=== PATIENT | male | born 1980 | race Caucasian/White ===

== ENCOUNTER 2021-08-15 17:50 | Inpatient (IN) | payer OTHER ==
[2021-08-15] MEDS ORDERED: HYDROmorphone 0.5 MG/0.5 ML SYRINGE IVP STA ×2 (21:01→22:46)
[2021-08-15] MEDS ORDERED: SODIUM CHLORIDE 0.9% 1,000 ML IV STA (21:01)
[2021-08-15] MEDS ORDERED: ONDANSETRON 4 MG/2 ML VIAL IVP STA (21:01)
--- NOTE | 2021-08-15 21:05 | ED ---
Abdominal Pain HPI - General Chief Complaint: Abdominal Pain Stated Complaint: Abd Pain Time Seen by Provider: 08/15/21 20:55 Source: patient, RN notes reviewed, old records reviewed Mode of arrival: ambulatory Limitations: no limitations - History of Present Illness Initial Comments: Well-appearing 41-year-old male presents to the emergency room with epigastric abdominal pain that woke him from sleep at 3 AM. Patient states that he's had constant pain sharp and stabbing that radiates into his back since. He's had 2 episodes of vomiting undigested food. Family member gave him Zofran with some relief this afternoon along with Pepto-Bismol. Denies any fevers, no medical history. Nonsmoker, drinks 2 beers at a time maybe 3 times a week MD Complaint: abdominal pain -: hour(s) (18) Location: diffuse Radiation: L flank, R flank Severity scale (1-10): 10 Quality: stabbing, sharp Consistency: constant Improves With: nothing Worsens With: movement Associated Symptoms: nausea, vomiting Treatments Prior to Arrival: other (zofran) - Related Data Home Medications Medication Instructions Recorded Confirmed No Known Home Medications 08/15/21 08/15/21 Allergies Allergy/AdvReac Type Severity Reaction Status Date / Time No Known Allergies Allergy Verified 08/15/21 22:10 Review of Systems ROS Statement: Those systems with pertinent positive or pertinent negative responses have been documented in the HPI. ROS Other: All systems not noted in ROS Statement are negative. Past Medical History Past Medical History: No Reported History Past Surgical History: No Surgical Hx Reported Smoking Status: Former smoker Past Alcohol Use History: Occasional Past Drug Use History: None Reported General Exam Limitations: no limitations General appearance: alert, in no apparent distress Head exam: Present: atraumatic, normocephalic, normal inspection Eye exam: Present: normal appearance. Absent: scleral icterus, conjunctival injection ENT exam: Present: mucous membranes moist Neck exam: Present: normal inspection, full ROM. Absent: tenderness, meningismus Respiratory exam: Present: normal lung sounds bilaterally. Absent: respiratory distress, accessory muscle use Cardiovascular Exam: Present: regular rate, normal rhythm GI/Abdominal exam: Present: soft, tenderness (Diffuse). Absent: rigid Extremities exam: Present: normal capillary refill. Absent: pedal edema Back exam: Present: normal inspection, full ROM, CVA tenderness (R). Absent: tenderness, rash noted Neurological exam: Present: alert, oriented X3, normal gait Psychiatric exam: Present: normal affect, normal mood Skin exam: Present: warm, dry, intact, normal color. Absent: cyanosis, diaphoretic, petechiae, pallor Course Vital Signs 08/15/21 18:31 Temperature 98.2 F Pulse Rate 80 Respiratory 20 Rate Blood Pressure 135/81 O2 Sat by Pulse 99 Oximetry Medical Decision Making - Medical Decision Making Patient presents with upper abdominal pain radiates into his back since 3:00 this morning. He states that he does not drink daily, no previous history of pancreatitis. No previous surgical or medical history AST 710, ALT 866, alk phos 132, amylase 1003, Lipase 61952 CT shows fluid in the left retroperitoneal anterior pararenal space consistent with pancreatitis. There is cholelithiasis with no dilated ducts. No evidence of diverticulitis. No mesenteric edema, no ascites. Patient was given IV fluids and pain medication. NPO. Results discussed with patient and he will be admitted to the hospital for acute pancreatitis. He is agreeable to this plan of care. Case discussed with Dr. Brock. - Lab Data Result diagrams: 08/15/21 22:00 08/15/21 22:00 Lab Results 08/15/21 08/15/21 08/15/21 Range/Units 21:01 22:00 22:00 WBC 9.1 (3.8-10.6) k/uL RBC 5.26 (4.30-5.90) m/uL Hgb 13.6 (13.0-17.5) gm/dL Hct 41.2 (39.0-53.0) % MCV 78.3 L (80.0-100.0) fL MCH 25.8 (25.0-35.0) pg MCHC 32.9 (31.0-37.0) g/dL RDW 13.6 (11.5-15.5) % Plt Count 169 (150-450) k/uL MPV 8.4 Neutrophils % 92 % Lymphocytes % 3 % Monocytes % 3 % Eosinophils % 1 % Basophils % 0 % Neutrophils # 8.3 H (1.3-7.7) k/uL Lymphocytes # 0.3 L (1.0-4.8) k/uL Monocytes # 0.3 (0-1.0) k/uL Eosinophils # 0.1 (0-0.7) k/uL Basophils # 0.0 (0-0.2) k/uL PT (9.0-12.0) sec INR (<1.2) APTT (22.0-30.0) sec Sodium 138 (137-145) mmol/L Potassium 4.1 (3.5-5.1) mmol/L Chloride 101 (98-107) mmol/L Carbon Dioxide 27 (22-30) mmol/L Anion Gap 10 mmol/L BUN 15 (9-20) mg/dL Creatinine 1.01 (0.66-1.25) mg/dL Est GFR (CKD-EPI)AfAm >90 (>60 ml/min/1.73 sqM) Est GFR (CKD-EPI)NonAf >90 (>60 ml/min/1.73 sqM) Glucose 118 H (74-99) mg/dL Plasma Lactic Acid Darron (0.7-2.0) mmol/L Calcium 9.3 (8.4-10.2) mg/dL Total Bilirubin 3.0 H (0.2-1.3) mg/dL AST 710 H (17-59) U/L ALT 866 H (4-49) U/L Alkaline Phosphatase 132 H (38-126) U/L Total Protein 7.4 (6.3-8.2) g/dL Albumin 4.5 (3.5-5.0) g/dL Amylase 1003 H* (30-110) U/L Lipase 72766 H (23-300) U/L Urine Color Yellow Urine Appearance Clear (Clear) Urine pH 5.5 (5.0-8.0) Ur Specific [place] 1.024 (1.001-1.035) Urine Protein 1+ H (Negative) Urine Glucose (UA) Negative (Negative) Urine Ketones Negative (Negative) Urine Blood Negative (Negative) Urine Nitrite Negative (Negative) Urine Bilirubin 1+ H (Negative) Urine Urobilinogen 2.0 (<2.0) mg/dL Ur Leukocyte Esterase Negative (Negative) Urine RBC <1 (0-5) /hpf Urine WBC 1 (0-5) /hpf Urine Mucus Rare H (None) /hpf 08/15/21 08/15/21 Range/Units 22:00 22:00 WBC (3.8-10.6) k/uL RBC (4.30-5.90) m/uL Hgb (13.0-17.5) gm/dL Hct (39.0-53.0) % MCV (80.0-100.0) fL MCH (25.0-35.0) pg MCHC (31.0-37.0) g/dL RDW (11.5-15.5) % Plt Count (150-450) k/uL MPV Neutrophils % % Lymphocytes % % Monocytes % % Eosinophils % % Basophils % % Neutrophils # (1.3-7.7) k/uL Lymphocytes # (1.0-4.8) k/uL Monocytes # (0-1.0) k/uL Eosinophils # (0-0.7) k/uL Basophils # (0-0.2) k/uL PT 10.1 (9.0-12.0) sec INR 0.9 (<1.2) APTT 21.7 L (22.0-30.0) sec Sodium (137-145) mmol/L Potassium (3.5-5.1) mmol/L Chloride (98-107) mmol/L Carbon Dioxide (22-30) mmol/L Anion Gap mmol/L BUN (9-20) mg/dL Creatinine (0.66-1.25) mg/dL Est GFR (CKD-EPI)AfAm (>60 ml/min/1.73 sqM) Est GFR (CKD-EPI)NonAf (>60 ml/min/1.73 sqM) Glucose (74-99) mg/dL Plasma Lactic Acid [place] 1.7 (0.7-2.0) mmol/L Calcium (8.4-10.2) mg/dL Total Bilirubin (0.2-1.3) mg/dL AST (17-59) U/L ALT (4-49) U/L Alkaline Phosphatase (38-126) U/L Total Protein (6.3-8.2) g/dL Albumin (3.5-5.0) g/dL Amylase (30-110) U/L Lipase (23-300) U/L Urine Color Urine Appearance (Clear) Urine pH (5.0-8.0) Ur Specific [place] (1.001-1.035) Urine Protein (Negative) Urine Glucose (UA) (Negative) Urine Ketones (Negative) Urine Blood (Negative) Urine Nitrite (Negative) Urine Bilirubin (Negative) Urine Urobilinogen (<2.0) mg/dL Ur Leukocyte Esterase (Negative) Urine RBC (0-5) /hpf Urine WBC (0-5) /hpf Urine Mucus (None) /hpf Disposition Clinical Impression: Pancreatitis Disposition: ADMITTED IP TO THIS [facility] Referrals: Nonstaff,Physician [Primary Care Provider] - 1-2 days Decision Date: 08/15/21 Decision Time: 22:56
[2021-08-15 22:11] LABS: Basophils % (A) 0 %; Eosinophils # (A) 0.1 k/uL (0-0.7); Eosinophils % (A) 1 %; HCT 41.2 % (39.0-53.0); HGB 13.6 gm/dL (13.0-17.5); Lymphocytes # (A) 0.3 k/uL (1.0-4.8); Lymphocytes % (A) 3 %; MCH 25.8 pg (25.0-35.0); MCHC 32.9 g/dL (31.0-37.0); MCV 78.3 fL (80.0-100.0); Mean Platelet Volume 8.4; Monocytes # (A) 0.3 k/uL (0-1.0); Monocytes % (A) 3 %; Neutrophils # (A) 8.3 k/uL (1.3-7.7); Neutrophils % (A) 92 %; Platelet Count 169 k/uL (150-450); RBC 5.26 m/uL (4.30-5.90); RDW 13.6 % (11.5-15.5); WBC 9.1 k/uL (3.8-10.6)
[2021-08-15 22:36] LABS: AST 710 U/L (17-59); African American GFR (CKD) >90 (>60 ml/min/1.73 sqM); Albumin 4.5 g/dL (3.5-5.0); Alkaline Phosphatase 132 U/L (38-126); Anion Gap 10 mmol/L; Blood Urea Nitrogen 15 mg/dL (9-20); Calcium 9.3 mg/dL (8.4-10.2); Carbon Dioxide 27 mmol/L (22-30); Chloride 101 mmol/L (98-107); Glucose 118 mg/dL (74-99); Non-African American GFR(CKD) >90 (>60 ml/min/1.73 sqM); Potassium 4.1 mmol/L (3.5-5.1); Sodium 138 mmol/L (137-145); Total Protein 7.4 g/dL (6.3-8.2)
[2021-08-15 22:40] LABS: INR 0.9 (<1.2); Prothrombin Time 10.1 sec (9.0-12.0)
[2021-08-15 22:51] LABS: Amylase 1003 U/L (30-110)
[2021-08-15 22:52] LABS: ALT 866 U/L (4-49)
[2021-08-15 22:54] LABS: Partial Thromboplastin Time 21.7 sec (22.0-30.0)
[2021-08-15 23:25] LABS: Lipase 12637 U/L (23-300)
[2021-08-15 23:50] LABS: Appearance,Urine Clear (Clear); Bilirubin,Urine 1+ (Negative); Blood,Urine Negative (Negative); Color,Urine Yellow; Glucose,Urine (UA) Negative (Negative); Ketones,Urine Negative (Negative); Leukocyte Esterase,Urine Negative (Negative); Mucus,Urine Rare /hpf; Nitrite,Urine Negative (Negative); PH, Urine 5.5 (5.0-8.0); Protein,Urine 1+ (Negative); RBC,Urine <1 /hpf (0-5); Specific Gravity,Urine 1.024 (1.001-1.035); WBC,Urine 1 /hpf (0-5)
--- NOTE | 2021-08-16 00:03 | CT ---
EXAMINATION TYPE: CT abdomen pelvis w con DATE OF EXAM: 08/15/2021 COMPARISON: None HISTORY: abd pain CT DLP: 1126.1 mGycm Automated exposure control for dose reduction was used. CONTRAST: Performed with IV Contrast, patient injected with 100 mL of Isovue 370. Images obtained from the diaphragm to the floor of the pelvis with the IV contrast. Lung bases are clear of infiltrate. No pleural effusion. Heart size is normal. No pericardial effusio n. Liver spleen stomach pancreas appear intact. There are calcified gallstones. The bile ducts are no t dilated. There is some fluid in the left anterior pararenal space. There is no adrenal mass. Kidneys show satisfactory contrast opacification. There is no hydronephrosi s. Delayed images show normal renal excretion. There is no retroperitoneal adenopathy. Bladder disten ds smoothly. No inguinal hernia. No free fluid in the pelvis. There are multiple sigmoid diverticula. No diverticulitis. There is no evidence of thickened appendix. There is no mesenteric edema. No ascites. No evidence of free air. No bowel obstruction. Lumbar spine is intact. No compression fracture. Bony pelvis appears intact. IMPRESSION: There is fluid in the left retroperitoneal anterior pararenal space. No sign of renal obstruction. Th is could relate to acute pancreatitis. No significant pancreatic swelling seen however. Cholelithiasis. No dilated ducts.
[2021-08-16] MEDS ORDERED: NALOXONE 0.4 MG/ML 1 ML VIAL IV PRN (00:13)
[2021-08-16] MEDS ORDERED: ONDANSETRON 4 MG/2 ML VIAL IVP PRN (00:13)
[2021-08-16] MEDS: SODIUM CHLORIDE 0.9% 1,000 ML IV SCH ×4 (01:27→20:29)
[2021-08-16] MEDS: HYDROmorphone 1 MG/ML 1 ML SYRINGE IVP PRN ×6 (01:28→21:37)
[2021-08-16 08:35] LABS: ALT 684 U/L (4-49); AST 411 U/L (17-59); African American GFR (CKD) >90 (>60 ml/min/1.73 sqM); Albumin/Globulin Ratio 1.5; Alkaline Phosphatase 132 U/L (38-126); Anion Gap 10 mmol/L; Blood Urea Nitrogen 13 mg/dL (9-20); Calcium 8.4 mg/dL (8.4-10.2); Carbon Dioxide 24 mmol/L (22-30); Chloride 105 mmol/L (98-107); Globulin 2.7 g/dL; Glucose 121 mg/dL (74-99); Non-African American GFR(CKD) >90 (>60 ml/min/1.73 sqM); Potassium 4.1 mmol/L (3.5-5.1); Sodium 139 mmol/L (137-145); Total Protein 6.7 g/dL (6.3-8.2)
[2021-08-16 08:39] LABS: Basophils % (A) 0 %; Eosinophils # (A) 0.1 k/uL (0-0.7); Eosinophils % (A) 1 %; HGB 13.4 gm/dL (13.0-17.5); Lymphocytes # (A) 0.5 k/uL (1.0-4.8); Lymphocytes % (A) 7 %; MCH 25.9 pg (25.0-35.0); MCHC 32.5 g/dL (31.0-37.0); MCV 79.4 fL (80.0-100.0); Mean Platelet Volume 9.6; Monocytes # (A) 0.3 k/uL (0-1.0); Monocytes % (A) 4 %; Neutrophils # (A) 5.5 k/uL (1.3-7.7); Neutrophils % (A) 86 %; Platelet Count 182 k/uL (150-450); RBC 5.16 m/uL (4.30-5.90); RDW 14.2 % (11.5-15.5); WBC 6.4 k/uL (3.8-10.6)
[2021-08-16 09:00] LABS: Amylase 768 U/L (30-110)
[2021-08-16 09:09] LABS: Lipase 8600 U/L (23-300)
[2021-08-16] MEDS: PANTOPRAZOLE 40 MG/10 ML VIAL IV SCH (09:35)
--- NOTE | 2021-08-16 10:07 | P.GSCN ---
History of Present Illness Consult date: 08/16/21 Reason for Consult: Acute pancreatitis Requesting physician: Yuan Mcgovern History of present illness: Patient is a 41-year-old white male who presented to the emergency department yesterday evening with complaints of abdominal pain with nausea and vomiting that began Sunday night and woke him out of sleep. He states it did get somewhat better but then continued throughout the day and he started vomiting. He states he continues to have abdominal pain it is diffuse, nausea and vomiting has improved. He denies any fevers or chills. He has no significant past medical history. He states that he does drink a few times a week 2-3 beers each time and no previous history of pancreatitis, no history of gallbladder disease. Denies any new medications. Labs were consistent with pancreatitis. WBC 9.1 hemoglobin 13.6 hematocrit 41 platelet count 169,000 INR 0.9 total bilirubin 3.0 AST 710 ALT 866 alkaline phosphatase 132 amylase 1003 lipase 12,[address] of the abdomen and pelvis that showed fluid in the left retroperitoneal anterior pararenal space. No sign of renal obstruction. Could be related to acute pancreatitis. No significant pancreatic swelling seen however. Cholelithiasis with no dilated ducts. Review of Systems REVIEW OF SYSTEMS: CARDIOPULMONARY: No chest pain or shortness of breath. Gastrointestinal: Diffuse abdominal pain. Radiating to his back from a right upper quadrant. Nausea and vomiting. No hematemesis, coffee-ground emesis. No rectal bleeding, or melena. GENITOURINARY: No dysuria or hematuria. MUSCULOSKELETAL: Reports normal range of motion. SKIN: No rashes. No jaundice. ENDOCRINE: No chills, fevers. No excessive weight gain or loss. No polydipsia or polyuria. PSYCHIATRIC: Unremarkable. NEUROLOGY: No change in mental status. Denies dizziness, headache. ENT: Vision unremarkable. CONSTITUTIONAL: No recent weight loss. No fever, chills, night sweats. Past Medical History Past Medical History: No Reported History Past Surgical History: No Surgical Hx Reported Smoking Status: Former smoker Past Alcohol Use History: Occasional Past Drug Use History: None Reported Medications and Allergies Home Medications Medication Instructions Recorded Confirmed Type No Known Home Medications 08/15/21 08/15/21 History Allergies Allergy/AdvReac Type Severity Reaction Status Date / Time No Known Allergies Allergy Verified 08/15/21 22:10 Surgical - Exam Vital Signs Temp Pulse Resp BP Pulse Ox 98.2 F 80 20 135/81 99 08/15/21 18:31 08/15/21 18:31 08/15/21 18:31 08/15/21 18:31 08/15/21 18:31 General appearance: The patient is alert, oriented, appears in no acute distress. HET: Head is normocephalic and atraumatic. Conjunctiva pink. Sclera anicteric. Neck: Supple without lymphadenopathy. Trachea midline. Heart: S1 S2. Regular rate and rhythm. Lungs: Clear to auscultation. Abdomen: Soft, diffuse tenderness, nondistended with bowel sounds. No guarding or rigidity. Skin: No rashes. No jaundice. Extremities: Normal skin color and turgor. No pedal edema. Neurological: No focal deficits. Alert and oriented x3. Results - Labs 08/16/21 07:52 08/16/21 07:52 Abnormal Lab Results - Last 24 Hours (Table) 08/15/21 08/15/21 08/15/21 Range/Units 21:01 22:00 22:00 MCV 78.3 L (80.0-100.0) fL Neutrophils # 8.3 H (1.3-7.7) k/uL Lymphocytes # 0.3 L (1.0-4.8) k/uL APTT (22.0-30.0) sec Glucose 118 H (74-99) mg/dL Total Bilirubin 3.0 H (0.2-1.3) mg/dL AST 710 H (17-59) U/L ALT 866 H (4-49) U/L Alkaline Phosphatase 132 H (38-126) U/L Amylase 1003 H* (30-110) U/L Lipase 36182 H (23-300) U/L Urine Protein 1+ H (Negative) Urine Bilirubin 1+ H (Negative) Urine Mucus Rare H (None) /hpf 08/15/21 Range/Units 22:00 MCV (80.0-100.0) fL Neutrophils # (1.3-7.7) k/uL Lymphocytes # (1.0-4.8) k/uL APTT 21.7 L (22.0-30.0) sec Glucose (74-99) mg/dL Total Bilirubin (0.2-1.3) mg/dL AST (17-59) U/L ALT (4-49) U/L Alkaline Phosphatase (38-126) U/L Amylase (30-110) U/L Lipase (23-300) U/L Urine Protein (Negative) Urine Bilirubin (Negative) Urine Mucus (None) /hpf Diabetes panel 08/15/21 Range/Units 22:00 Sodium 138 (137-145) mmol/L Potassium 4.1 (3.5-5.1) mmol/L Chloride 101 (98-107) mmol/L Carbon Dioxide 27 (22-30) mmol/L BUN 15 (9-20) mg/dL Creatinine 1.01 (0.66-1.25) mg/dL Glucose 118 H (74-99) mg/dL Calcium 9.3 (8.4-10.2) mg/dL AST 710 H (17-59) U/L ALT 866 H (4-49) U/L Alkaline Phosphatase 132 H (38-126) U/L Total Protein 7.4 (6.3-8.2) g/dL Albumin 4.5 (3.5-5.0) g/dL Calcium panel 08/15/21 Range/Units 22:00 Calcium 9.3 (8.4-10.2) mg/dL Albumin 4.5 (3.5-5.0) g/dL Pituitary panel 08/15/21 Range/Units 22:00 Sodium 138 (137-145) mmol/L Potassium 4.1 (3.5-5.1) mmol/L Chloride 101 (98-107) mmol/L Carbon Dioxide 27 (22-30) mmol/L BUN 15 (9-20) mg/dL Creatinine 1.01 (0.66-1.25) mg/dL Glucose 118 H (74-99) mg/dL Calcium 9.3 (8.4-10.2) mg/dL Adrenal panel 08/15/21 Range/Units 22:00 Sodium 138 (137-145) mmol/L Potassium 4.1 (3.5-5.1) mmol/L Chloride 101 (98-107) mmol/L Carbon Dioxide 27 (22-30) mmol/L BUN 15 (9-20) mg/dL Creatinine 1.01 (0.66-1.25) mg/dL Glucose 118 H (74-99) mg/dL Calcium 9.3 (8.4-10.2) mg/dL Total Bilirubin 3.0 H (0.2-1.3) mg/dL AST 710 H (17-59) U/L ALT 866 H (4-49) U/L Alkaline Phosphatase 132 H (38-126) U/L Total Protein 7.4 (6.3-8.2) g/dL Albumin 4.5 (3.5-5.0) g/dL - Imaging Comments: CT of the abdomen and pelvis that showed fluid in the left retroperitoneal anterior pararenal space. No sign of renal obstruction. Could be related to acute pancreatitis. No significant pancreatic swelling seen however. Cholelithiasis with no dilated ducts. CT scan - abdomen: report reviewed Assessment and Plan (1) Pancreatitis Narrative/Plan: 41-year-old male with no significant past medical history presented to the emergency department with the complaints of acute sharp abdominal pain radiating to his back and associated with nausea and vomiting. Labs were consistent with pancreatitis. He had a CT of the abdomen and pelvis that did show cholelithiasis with no dilated ducts. No previous history of pancreatitis, admits to drinking a few times a week 2-3 beers at a time. No past history of alcohol abuse no previous history of pancreatitis and reports no new medications. Likely dealing with a gallstone pancreatitis possible choledocholithiasis although CT is not showing evidence of dilated ducts. MRCP is ordered, continue with symptomatic and supportive care at this time. Likely will plan an ERCP once patient's lab stabilize. Current Visit: Yes Status: Acute Code(s): K85.90 - ACUTE PANCREATITIS WITHOUT NECROSIS OR INFECTION, UNSP SNOMED Code(s): 07462202 Plan: 1. Continue symptomatic and supportive care 2. Antiemetics as needed 3. Protonix 40 mg daily 4. Daily CBC, CMP, lipase 5. MRCP ordered 6. Continue nothing by mouth diet for now 7. Consult to General surgery for cholelithiasis, gallstone pancreatitis 8. Further recommendations to follow based on clinical course Thank you for this consultation, we will continue to follow. Dr. Lydia Diaz I agree with the dictator's note, documented as a scribe by Laura Valente.
[2021-08-16] MEDS ORDERED: SODIUM CHLORIDE 0.9% 1,000 ML IV ONE (12:01)
--- NOTE | 2021-08-16 13:12 | P.GSCN ---
History of Present Illness Consult date: 08/16/21 History of present illness: CHIEF COMPLAINT: Abdominal pain HISTORY OF PRESENT ILLNESS: This is a 41-year-old male who presented to the hospital with complaints of abdominal pain that started yesterday morning around 3 AM. He reports that the pain is in the epigastric and right upper quadrant area and radiates across the abdomen into the back and up into the shoulders. He reports that his pain was rating it 10 out of 10. Pain is currently 7 out of 10. He reports of the pain medication does help. He has been having nausea and vomiting. He reports that he had similar symptoms about 2 months ago after eating spicy foods. Patient does have elevated liver enzymes and elevated lipase. Evidence of cholelithiasis on computed tomography scan. Patient admitted with gallstone pancreatitis. Patient seen by GI service. They're recommending an MRCP. Surgical service consulted for gallstone pancreatitis. Patient denies any fevers chills or sweats. Patient's urine has been dark. Patient denies cardiac history. Denies any prior abdominal surgical history. Patient seen and examined with Dr. catherine PAST MEDICAL HISTORY: none PAST SURGICAL HISTORY: none MEDICATIONS: See list. ALLERGIES: See list. SOCIAL HISTORY: No illicit drug use. Former smoker REVIEW OF SYSTEMS: CONSTITUTIONAL: Denies fever or chills. HEENT: Denies blurred vision, vision changes, or eye pain. Denies hemoptysis CARDIOVASCULAR: Denies chest pain or pressure. RESPIRATORY: No shortness of breath. GASTROINTESTINAL: See HPI for pertinent findings HEMATOLOGIC: Denies bleeding disorders. GENITOURINARY: Denies any blood in urine or increased urinary frequency. SKIN: Denies pruitis. Denies rash. PHYSICAL EXAM: VITAL SIGNS: Reviewed GENERAL: Well-developed in no acute distress. HEENT: No sclera icterus. Extraocular movements grossly intact. Moist buccal mucosa. Head is atraumatic, normocephalic. No nasal drainage. ABDOMEN: Soft. Nondistended. Tenderness to palpation of the epigastric and right upper quadrant area NEUROLOGIC: Alert and oriented. Cranial nerves II through XII grossly intact. LABORATORY DATA: WBC 6.4 Hgb 13.4 platelets 182 Sodium 139 potassium 4.1 creatinine 0.94 Total bilirubin up from 3-4.0 AST 710-411 ALT 866-684 alk phos 132 Amylase 1003 down to 768 Lipase 12,637 down to 8600 IMAGING: Computed tomography scan abdomen and pelvis there is fluid in the left retroperitoneal anterior pararenal space. No sign of renal obstruction. This could relate to acute pancreatitis. No significant pancreatic swelling is seen however. Cholelithiasis. No dilated ducts. ASSESSMENT: 1. Acute gallstone pancreatitis 2. Elevated LFTs and total bilirubin PLAN: -Keep patient nothing by mouth except for ice chips -We'll give 1 L fluid bolus. Patient is complaining of extreme thirst. -Continue pain medication as needed -Continue antiemetics as needed -Awaiting MRCP and further recommendations per GI service -Continue to monitor -Patient will eventually require laparoscopic cholecystectomy Thank you for this consultation Physician Manager Unit note has been reviewed by physician. Signing provider agrees with the documented findings, assessment, and plan of care. Past Medical History Past Medical History: No Reported History History of Any Multi-Drug Resistant Organisms: None Reported Past Surgical History: No Surgical Hx Reported Additional Past Anesthesia/Blood Transfusion Reaction / Comm: Pt has never had surgery Smoking Status: Former smoker Past Alcohol Use History: Occasional Past Drug Use History: None Reported - Past Family History Mother Family Medical History: Cancer Additional Family Medical History / Comment(s): Breast cancer survivor Father Family Medical History: Cancer Additional Family Medical History / Comment(s): Lung cancer. Father is living. Medications and Allergies Home Medications Medication Instructions Recorded Confirmed Type No Known Home Medications 08/15/21 08/15/21 History Allergies Allergy/AdvReac Type Severity Reaction Status Date / Time No Known Allergies Allergy Verified 08/15/21 22:10 Surgical - Exam Vital Signs Temp Pulse Resp BP Pulse Ox 98.2 F 80 20 135/81 99 08/15/21 18:31 08/15/21 18:31 08/15/21 18:31 08/15/21 18:31 08/15/21 18:31 Results - Labs 08/16/21 07:52 08/16/21 07:52 Abnormal Lab Results - Last 24 Hours (Table) 08/15/21 08/15/21 08/15/21 Range/Units 21:01 22:00 22:00 MCV 78.3 L (80.0-100.0) fL Neutrophils # 8.3 H (1.3-7.7) k/uL Lymphocytes # 0.3 L (1.0-4.8) k/uL APTT (22.0-30.0) sec Glucose 118 H (74-99) mg/dL Total Bilirubin 3.0 H (0.2-1.3) mg/dL AST 710 H (17-59) U/L ALT 866 H (4-49) U/L Alkaline Phosphatase 132 H (38-126) U/L Amylase 1003 H* (30-110) U/L Lipase 93720 H (23-300) U/L Urine Protein 1+ H (Negative) Urine Bilirubin 1+ H (Negative) Urine Mucus Rare H (None) /hpf 08/15/21 08/16/21 08/16/21 Range/Units 22:00 07:52 07:52 MCV 79.4 L (80.0-100.0) fL Neutrophils # (1.3-7.7) k/uL Lymphocytes # 0.5 L (1.0-4.8) k/uL APTT 21.7 L (22.0-30.0) sec Glucose 121 H (74-99) mg/dL Total Bilirubin 4.0 H (0.2-1.3) mg/dL AST 411 H (17-59) U/L ALT 684 H (4-49) U/L Alkaline Phosphatase 132 H (38-126) U/L Amylase 768 H* (30-110) U/L Lipase 8600 H (23-300) U/L Urine Protein (Negative) Urine Bilirubin (Negative) Urine Mucus (None) /hpf Diabetes panel 08/15/21 08/16/21 Range/Units 22:00 07:52 Sodium 138 139 (137-145) mmol/L Potassium 4.1 4.1 (3.5-5.1) mmol/L Chloride 101 105 (98-107) mmol/L Carbon Dioxide 27 24 (22-30) mmol/L BUN 15 13 (9-20) mg/dL Creatinine 1.01 0.94 (0.66-1.25) mg/dL Glucose 118 H 121 H (74-99) mg/dL Calcium 9.3 8.4 (8.4-10.2) mg/dL AST 710 H 411 H (17-59) U/L ALT 866 H 684 H (4-49) U/L Alkaline Phosphatase 132 H 132 H (38-126) U/L Total Protein 7.4 6.7 (6.3-8.2) g/dL Albumin 4.5 4.0 (3.5-5.0) g/dL Calcium panel 08/15/21 08/16/21 Range/Units 22:00 07:52 Calcium 9.3 8.4 (8.4-10.2) mg/dL Albumin 4.5 4.0 (3.5-5.0) g/dL Pituitary panel 08/15/21 08/16/21 Range/Units 22:00 07:52 Sodium 138 139 (137-145) mmol/L Potassium 4.1 4.1 (3.5-5.1) mmol/L Chloride 101 105 (98-107) mmol/L Carbon Dioxide 27 24 (22-30) mmol/L BUN 15 13 (9-20) mg/dL Creatinine 1.01 0.94 (0.66-1.25) mg/dL Glucose 118 H 121 H (74-99) mg/dL Calcium 9.3 8.4 (8.4-10.2) mg/dL Adrenal panel 08/15/21 08/16/21 Range/Units 22:00 07:52 Sodium 138 139 (137-145) mmol/L Potassium 4.1 4.1 (3.5-5.1) mmol/L Chloride 101 105 (98-107) mmol/L Carbon Dioxide 27 24 (22-30) mmol/L BUN 15 13 (9-20) mg/dL Creatinine 1.01 0.94 (0.66-1.25) mg/dL Glucose 118 H 121 H (74-99) mg/dL Calcium 9.3 8.4 (8.4-10.2) mg/dL Total Bilirubin 3.0 H 4.0 H (0.2-1.3) mg/dL AST 710 H 411 H (17-59) U/L ALT 866 H 684 H (4-49) U/L Alkaline Phosphatase 132 H 132 H (38-126) U/L Total Protein 7.4 6.7 (6.3-8.2) g/dL Albumin 4.5 4.0 (3.5-5.0) g/dL
--- NOTE | 2021-08-16 13:13 | P.HPIM ---
History of Present Illness H&P Date: 08/16/21 Chief Complaint: Abdominal pain with nausea/vomiting This is a pleasant 41-year-old male with no significant past medical history presents to the with concern for abdominal pain and nausea vomiting. He is a former smoker quit in 2014, reports drinking 2-3 beers a few times per week, not daily. Patient is in the area vacationing with his . Around 4 pm yesterday he began having abdominal pain epigastric rates it as a sharp rating 8 to 9 out of 10. He also has nausea and vomiting that began sunday night. Denies hematemesis. No fever, no chills. No diarrhea, no melena. No recent diet changes, no recent illness. He has no history of pancreas or gallbladder issues. Nausea and vomiting has improved, abdominal pain is diffuse and has improved somewhat with pain medication. Once the medication wears off at around the 2.5 to 3 hour stephane, pain returns at a 9/10. On admission white count was 9.1, glucose final 118. Liver enzymes were found to be elevated total bili 3.0, AST 710, ALT 866, alk phos 132. Amylase is elevated at 1003, lipase elevated at 12,637. Abdominal pelvis CT completed shows some fluid around the pancreas consistent with possible pancreatitis. There is also calcified gallstones. Gallbladder duct does not appear dilated on imaging. Patient is admitted for possible gallstone pancreatitis, he has been nothing by mouth and is receiving fluids with normal saline. Amylase and lipase have improved, liver enzymes have also improved somewhat with hydration. He has been evaluated by surgical services who will plan for MRCP to rule out common bile duct stone. Enzymes will be trended. Pt is afebrile, heart rate 92, blood pressure 142/82, 100% room air. REVIEW OF SYSTEMS: CONSTITUTIONAL: No fever, no malaise, no fatigue. HEENT: No recent visual problems or hearing problems. Denied any sore throat. CARDIOVASCULAR: No chest pain, orthopnea, PND, no palpitations, no syncope. PULMONARY: No shortness of breath, no cough, no hemoptysis. GASTROINTESTINAL: No diarrhea. Reports nausea, vomiting, abdominal pain. NEUROLOGICAL: No headaches, no weakness, no numbness. HEMATOLOGICAL: Denies any bleeding or petechiae. GENITOURINARY: Denies any burning micturition, frequency, or urgency. MUSCULOSKELETAL/RHEUMATOLOGICAL: Denies any joint pain, swelling, or any muscle pain. ENDOCRINE: Denies any polyuria or polydipsia. The rest of the 14-point review of systems is negative. PHYSICAL EXAMINATION: GENERAL: The patient is alert and oriented x3, not in any acute distress. Well developed, well nourished. HEENT: Pupils are round and equally reacting to light. EOMI. No scleral icterus. No conjunctival pallor. Normocephalic, atraumatic. No pharyngeal erythema. No thyromegaly. CARDIOVASCULAR: S1 and S2 present. No murmurs, rubs, or gallops. PULMONARY: Chest is clear to auscultation, no wheezing or crackles. ABDOMEN: Soft, tender, nondistended, normoactive bowel sounds. No palpable organomegaly. MUSCULOSKELETAL: No joint swelling or deformity. EXTREMITIES: No cyanosis, clubbing, or pedal edema. NEUROLOGICAL: Gross neurological examination did not reveal any focal deficits. SKIN: No rashes. Assessment and Plan Assessment Possible acute pancreatitis could be gallstone pancreatitis Elevated LFT's Hypertension possibly from pain Hyperglycemia Former smoker GI Prophylaxis IV protonix Full Code Plan Gastrointestinal, Surgical consultation MRCP has been ordered Patient is NPO Continue with IV fluids with normal saline Repeat CMP, Amylase, lipase Monitor blood pressure Check A1C The impression and plan of care has been dictated by Gema Rice, Nurse Practitioner as directed. Dr. Kwasi MD I have performed a history and physical examination and medical decision making of this patient, discussed the same with the dictator, and agree with the dictators assessment and plan as written, documented as a scribe. Based on total visit time, I have performed more than 50% of this visit. Past Medical History Past Medical History: No Reported History Past Surgical History: No Surgical Hx Reported Smoking Status: Former smoker Past Alcohol Use History: Occasional Past Drug Use History: None Reported - Past Family History Mother Family Medical History: Cancer Additional Family Medical History / Comment(s): Breast cancer survivor Father Family Medical History: Cancer Additional Family Medical History / Comment(s): Lung cancer. Father is living. Medications and Allergies Home Medications Medication Instructions Recorded Confirmed Type No Known Home Medications 08/15/21 08/15/21 History Allergies Allergy/AdvReac Type Severity Reaction Status Date / Time No Known Allergies Allergy Verified 08/15/21 22:10 Physical Exam Vitals: Vital Signs Temp Pulse Resp BP Pulse Ox 08/16/21 05:00 94 16 140/88 100 08/16/21 03:00 85 16 135/80 100 08/15/21 18:31 98.2 F 80 20 135/81 99 Intake and Output 08/15/21 08/16/21 08/16/21 22:59 06:59 14:59 Other: Weight 92.986 kg Results CBC & Chem 7: 08/16/21 07:52 08/16/21 07:52 Labs: Abnormal Lab Results - Last 24 Hours (Table) 08/15/21 08/15/21 08/15/21 Range/Units 21:01 22:00 22:00 MCV 78.3 L (80.0-100.0) fL Neutrophils # 8.3 H (1.3-7.7) k/uL Lymphocytes # 0.3 L (1.0-4.8) k/uL APTT (22.0-30.0) sec Glucose 118 H (74-99) mg/dL Total Bilirubin 3.0 H (0.2-1.3) mg/dL AST 710 H (17-59) U/L ALT 866 H (4-49) U/L Alkaline Phosphatase 132 H (38-126) U/L Amylase 1003 H* (30-110) U/L Lipase 82943 H (23-300) U/L Urine Protein 1+ H (Negative) Urine Bilirubin 1+ H (Negative) Urine Mucus Rare H (None) /hpf 08/15/21 08/16/21 Range/Units 22:00 07:52 MCV 79.4 L (80.0-100.0) fL Neutrophils # (1.3-7.7) k/uL Lymphocytes # 0.5 L (1.0-4.8) k/uL APTT 21.7 L (22.0-30.0) sec Glucose (74-99) mg/dL Total Bilirubin (0.2-1.3) mg/dL AST (17-59) U/L ALT (4-49) U/L Alkaline Phosphatase (38-126) U/L Amylase (30-110) U/L Lipase (23-300) U/L Urine Protein (Negative) Urine Bilirubin (Negative) Urine Mucus (None) /hpf Assessment and Plan Time with Patient: Less than 30
--- NOTE | 2021-08-16 18:28 | MR ---
[facility] HISTORY: Pancreatitis Multiplanar multisequence imaging obtained through the biliary system with three-dimensional reconstr uctions performed and alternate workstation and reviewed Correlation to CT scan 08/15/2021 There are multiple gallstones present within the dependent portion of the gallbladder. Focal low sign al consistent with stone is present within the distal common bile duct, axial image 21 of series 801 and 701, possibly coronal image #18 of series 401. Pericholecystic fluid is present. The liver is enl arged, no dilated biliary ducts are identified. There are portion of duodenum shows an ectatic appear ance, some local inflammatory changes are present. Pancreas shows no dilated duct, there is no evident mass, peripancreatic inflammatory changes, fluid signal noted as on CT along anterior renal extending into the lateral conal fascia on the left. Lung bases show probable atelectatic change. Spleen is enlarged. Adrenal glands are within normal arce its. No evident bowel obstruction. Aorta shows normal caliber. No evident retroperitoneal adenopathy. IMPRESSION: Findings consistent with choledocholithiasis, cholelithiasis, correlate for pancreatitis, cholecystitis. Probable basilar atelectasis. Hepatosplenomegaly.
[2021-08-17] MEDS: HYDROmorphone 1 MG/ML 1 ML SYRINGE IVP PRN ×7 (01:14→22:46)
[2021-08-17] MEDS: SODIUM CHLORIDE 0.9% 1,000 ML IV SCH ×3 (01:15→13:31)
[2021-08-17] MEDS ORDERED: ACETAMINOPHEN TAB 325 MG TAB PO PRN (07:17)
[2021-08-17 08:06] LABS: HCT 38.3 % (39.0-53.0); HGB 12.4 gm/dL (13.0-17.5); Hypochromasia Slight; MCH 26.1 pg (25.0-35.0); MCHC 32.5 g/dL (31.0-37.0); MCV 80.4 fL (80.0-100.0); Mean Platelet Volume 8.6; Platelet Count 169 k/uL (150-450); RBC 4.76 m/uL (4.30-5.90); RDW 14.1 % (11.5-15.5); WBC 7.3 k/uL (3.8-10.6)
[2021-08-17] MEDS: PANTOPRAZOLE 40 MG/10 ML VIAL IV SCH (08:07)
[2021-08-17] MEDS: PIPERACILLIN-TAZOBACTAM 3.375 GM in SODIUM CHLORIDE 0.9% 100 ML IVPB SCH ×2 (08:07→16:26)
[2021-08-17 10:51] LABS: African American GFR (CKD) 122.9 (60.0-200.0); Albumin 3.6 g/dL (3.8-4.9); Albumin/Globulin Ratio 1.73 (1.60-3.17); Anion Gap 11.5 mmol/L (10.00-18.00); BUN/Creat Ratio 14.09 Ratio (12.00-20.00); Blood Urea Nitrogen 12.6 mg/dL (9.0-27.0); Calcium 8.1 mg/dL (8.7-10.3); Carbon Dioxide 22.8 mmol/L (20.0-27.5); Globulin 2.1 g/dL (1.6-3.3); Potassium 4.2 mmol/L (3.5-5.5); Total Bilirubin 1.9 mg/dL (0.30-1.20); Total Protein 5.7 g/dL (6.2-8.2)
--- NOTE | 2021-08-17 12:09 | P.PN ---
Subjective Progress Note Date: 08/17/21 Principal diagnosis: Acute pancreatitis 41-year-old male who presented to the emergency department 2 days ago with complaints of abdominal pain radiating to his back and associated with nausea and vomiting. He was found to have labs consistent with acute pancreatitis. CT of the abdomen and pelvis with her concerning for choline lithiasis possible choledocholithiasis. Patient underwent MRCP yesterday showing choledocholithiasis, cholelithiasis. He also had a spike in his temperature to 100.1 yesterday afternoon and again this morning. He states abdominal pain is slightly improved but not by much. He has no further nausea or vomiting. WBC 7.3 hemoglobin 12.4 hematocrit 38 platelet count 169,000 total bilirubin 1.9 AST 108 ALT 41 alkaline phosphatase 131 amylase 194 lipase 343. Objective - Vital Signs Vital signs: Vital Signs Temp 99.7 F H 08/17/21 11:29 Pulse 91 08/17/21 11:29 Resp 16 08/17/21 11:29 BP 122/80 08/17/21 11:29 Pulse Ox 90 L 08/17/21 11:29 FiO2 Intake & Output 08/16/21 08/17/21 08/17/21 18:59 06:59 18:59 Intake Total 300 1200 Balance 300 1200 Weight 92.986 kg Intake: Intake, IV Titration 300 1200 Amount Sodium Chloride 0.9% 1, 300 1200 000 ml @ 150 mls/hr IV . Q6H40M [facility] Rx#:[id number] Other: Voiding Method Toilet Toilet - Exam General appearance: The patient is alert, oriented, appears in no acute distress. HET: Head is normocephalic and atraumatic. Conjunctiva pink. Sclera anicteric. Neck: Supple without lymphadenopathy. Abdomen: Soft, diffuse tenderness, greatest tenderness to palpation in the epigastric and right upper quadrant. Nondistended with bowel sounds. No guarding or rigidity. Extremities: Normal skin color and turgor. No pedal edema Skin: No rashes, no jaundice Neurological: No focal deficits. Alert and oriented x3. - Labs CBC & Chem 7: 08/17/21 05:27 08/17/21 05:27 Labs: Abnormal Lab Results - Last 24 Hours (Table) 08/17/21 08/17/21 Range/Units 05:27 05:27 Hgb 12.4 L (13.0-17.5) gm/dL Hct 38.3 L (39.0-53.0) % Calcium 8.1 L (8.7-10.3) mg/dL Total Bilirubin 1.90 H (0.30-1.20) mg/dL AST 108 H (14-35) U/L ALT 401 H (10-49) U/L Alkaline Phosphatase 131 H (41-126) U/L Total Protein 5.7 L (6.2-8.2) g/dL Albumin 3.6 L (3.8-4.9) g/dL Amylase 194 H (23-121) U/L Lipase 343 H (14-60) U/L Assessment and Plan (1) Pancreatitis Narrative/Plan: 41-year-old male with no significant past medical history presented to the emergency department with the complaints of acute sharp abdominal pain radiating to his back and associated with nausea and vomiting. Labs were consistent with pancreatitis. He had a CT of the abdomen and pelvis that did show cholelithiasis with no dilated ducts. No previous history of pancreatitis, admits to drinking a few times a week 2-3 beers at a time. No past history of alcohol abuse no previous history of pancreatitis and reports no new medications. Likely dealing with a gallstone pancreatitis possible choledocholithiasis although CT is not showing evidence of dilated ducts. MRCP shows cholelithiasis, choledocholithiasis. Labs continue to improve. Likely plan is to move forward with ERCP in 1-2 days. Current Visit: Yes Status: Acute Code(s): K85.90 - ACUTE PANCREATITIS WITHOUT NECROSIS OR INFECTION, UNSP SNOMED Code(s): 84050186 Plan: 1. Continue symptomatic and supportive care 2. Antiemetics as needed 3. Protonix 40 mg daily 4. Daily CBC, CMP, lipase 5. Clear liquid diet 6. Consult to General surgery for cholelithiasis, gallstone pancreatitis 7. Will reevaluate patient in the morning. Consider possible ERCP within the next 1-2 days Thank you for this consultation, we will continue to follow. Dr. Lydia Diaz I agree with the dictator's note, documented as a scribe by Laura Valente.
--- NOTE | 2021-08-17 13:37 | P.PN ---
Subjective Progress Note Date: 08/17/21 This is a pleasant 41-year-old male with no significant past medical history presents to the with concern for abdominal pain and nausea vomiting. He is a former smoker quit in 2014, reports drinking 2-3 beers a few times per week, not daily. Patient is in the area vacationing with his . Around 4 pm yesterday he began having abdominal pain epigastric rates it as a sharp rating 8 to 9 out of 10. He also has nausea and vomiting that began sunday night. Denies hematemesis. No fever, no chills. No diarrhea, no melena. No recent diet changes, no recent illness. He has no history of pancreas or gallbladder issues. Nausea and vomiting has improved, abdominal pain is diffuse and has improved somewhat with pain medication. Once the medication wears off at around the 2.5 to 3 hour stephane, pain returns at a 9/10. On admission white count was 9.1, glucose final 118. Liver enzymes were found to be elevated total bili 3.0, AST 710, ALT 866, alk phos 132. Amylase is elevated at 1003, lipase elevated at 12,637. Abdominal pelvis CT completed shows some fluid around the pancreas consistent with possible pancreatitis. There is also calcified gallstones. Gallbladder duct does not appear dilated on imaging. Patient is admitted for possible gallstone pancreatitis, he has been nothing by mouth and is receiving fluids with normal saline. Amylase and lipase have improved, liver enzymes have also improved somewhat with hydration. He has been evaluated by surgical services who will plan for MRCP to rule out common bile duct stone. Enzymes will be trended. Pt is afebrile, heart rate 92, blood pressure 142/82, 100% room air. 08/17/2021 Patient evaluated today resting in bed. 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 MRCP shows evidence for choledocholelisthiasis, cholelisthiasis, pancreatitis, cholecystitis. There is also evidence of basilar atelectasis on MRCP. Patient was started on IV zosyn. Pain today has slightly improved, mostly epigastric left upper quadrant pain. There is tenderness to palpation. He denies nausea, no vomiting. Pain is about 7/10 before pain meds. White count continues to be negative at 7.3. Oxygen saturation is 90 to 93% on room air. He does have some faint basilar crackles on exam. Liver enzymes are improving, amylase is now 194, lipase 343. GI services plan for ERCP in 1-2 days. General surgery is on consult and following patient. Review of Systems Constitutional: Denied any fatigue. Reports fever. Cardio vascular: denied any chest pain, palpitations Gastrointestinal: denied any nausea, vomiting, diarrhea. Reports abdominal pain. Pulmonary: Denies shortness of breath, Denies chest pain. Neurologic denied any new focal deficits All inpatient medications were reviewed and appropriate changes in these me dications as dictated in the interval history and assessment and plan. PHYSICAL EXAMINATION: GENERAL: The patient is alert and oriented x3, not in any acute distress. Well developed, well nourished. HEENT: Pupils are round and equally reacting to light. EOMI. No scleral icterus. No conjunctival pallor. Normocephalic, atraumatic. No pharyngeal erythema. No thyromegaly. CARDIOVASCULAR: S1 and S2 present. No murmurs, rubs, or gallops. PULMONARY: Faint basilar crackles. ABDOMEN: Soft, tender, nondistended, normoactive bowel sounds. No palpable organomegaly. MUSCULOSKELETAL: No joint swelling or deformity. EXTREMITIES: No cyanosis, clubbing, or pedal edema. NEUROLOGICAL: Gross neurological examination did not reveal any focal deficits. SKIN: No rashes. Assessment and Plan Assessment Possible acute pancreatitis could be gallstone pancreatitis Acute ascending cholangitis with sepsis with evidence of choledolisthiasis, cholelisthiasis on MRCP Elevated LFT's, improving Hypertension, improved Hyperglycemia, improved A1C 5.7 Former smoker GI Prophylaxis IV protonix Full Code Plan This is a 41 year old male with complaint of epigastric/left upper quadrant pain with associated nausea vomiting. He underwent MRCP and GI services is planning for an ERCP. Patient is now on clear liquid diet and will be NPO after midnight. There is evidence for possible ascending cholangitis and patient is now febrile. Blood cultures will be taken today, and he has been started on IV zosyn empiri nieves. Surgical services is following the patient. There is also evidence for atelectasis on MRCP and oxygen saturation is 90 to 93% on room air, patient does have basilar crackles and is using incentive spirometer at the bedside. Follow up chest xray has been ordered. We will repeat labs in the morning and continue to monitor temperature. He continues on IV fluids with normal saline. Possible infectious disease consultation. The impression and plan of care has been dictated by Gema Rice, Nurse Practitioner as directed. Dr. Kwasi MD I have performed a history and physical examination and medical decision making of this patient, discussed the same with the dictator, and agree with the dictators assessment and plan as written, documented as a scribe. Based on total visit time, I have performed more than 50% of this visit. Objective - Vital Signs Vital signs: Vital Signs Temp 99.7 F H 08/17/21 11:29 Pulse 91 08/17/21 11:29 Resp 16 08/17/21 11:29 BP 122/80 08/17/21 11:29 Pulse Ox 90 L 08/17/21 11:29 FiO2 Intake & Output 08/16/21 08/17/21 08/17/21 18:59 06:59 18:59 Intake Total 300 1200 Balance 300 1200 Weight 92.986 kg Intake: Intake, IV Titration 300 1200 Amount Sodium Chloride 0.9% 1, 300 1200 000 ml @ 150 mls/hr IV . Q6H40M [facility] Rx#:[id number] Other: Voiding Method Toilet Toilet - Labs CBC & Chem 7: 08/17/21 05:27 08/17/21 05:27 Labs: Abnormal Lab Results - Last 24 Hours (Table) 08/17/21 08/17/21 Range/Units 05:27 05:27 Hgb 12.4 L (13.0-17.5) gm/dL Hct 38.3 L (39.0-53.0) % Calcium 8.1 L (8.7-10.3) mg/dL Total Bilirubin 1.90 H (0.30-1.20) mg/dL AST 108 H (14-35) U/L ALT 401 H (10-49) U/L Alkaline Phosphatase 131 H (41-126) U/L Total Protein 5.7 L (6.2-8.2) g/dL Albumin 3.6 L (3.8-4.9) g/dL Amylase 194 H (23-121) U/L Lipase 343 H (14-60) U/L
--- NOTE | 2021-08-17 14:15 | XR ---
EXAMINATION TYPE: XR chest 2V DATE OF EXAM: 08/17/2021 COMPARISON: NONE HISTORY: Dyspnea. TECHNIQUE: Frontal and lateral views of the chest are obtained. FINDINGS: There are bibasilar opacities. The cardiac silhouette size is are upper limits of normal. No pneumothorax seen bilaterally. The osseous structures are intact. IMPRESSION: Small to tiny left pleural effusion and bibasilar acute infiltrates and/or atelectasis. Jason smith study advised.
--- NOTE | 2021-08-17 14:21 | P.PN ---
Subjective Progress Note Date: 08/17/21 CHIEF COMPLAINT: Gallstone pancreatitis HISTORY OF PRESENT ILLNESS: Patient complains of epigastric and right upper quadrant abdominal pain. He is rating his pain 8 out of 10. Reports that his pain is slightly better than yesterday. Denies any nausea or vomiting. He did have a low-grade temp of 100.1. WBC is 7.3 Hgb 12.4 platelets 169 total bilirubin is down from 4-1.9 LFTs trending downwards lipase showing improvement from 8600-343. MRCP findings consistent with choledocholithiasis, cholelithi asis, correlate for pancreatitis, cholecystitis. Probable basilar atelectasis and hepatosplenomegaly. Patient followed by GI service. Patient seen and examined with Dr. catherine PHYSICAL EXAM: VITAL SIGNS: Reviewed. GENERAL: Well-developed in no acute distress. HEENT: No sclera icterus. Extraocular movements grossly intact. Moist buccal mucosa. Head is atraumatic, normocephalic. ABDOMEN: Soft. Nondistended. Epigastric tenderness and right upper quadrant tenderness NEUROLOGIC: Alert and oriented. Cranial nerves II through XII grossly intact. ASSESSMENT: 1. Acute gallstone pancreatitis 2. Choledocholithiasis PLAN: -Awaiting GI plan regarding ERCP -Patient will require laparoscopic cholecystectomy. This can be completed outpatient. -Agree with adding antibiotics -Continue clear liquids -Continue to monitor LFTs -Continue pain medication as needed -Continue IV fluids Physician Outside Dealer Sales Representative note has been reviewed by physician. Signing provider agrees with the documented findings, assessment, and plan of care. Objective - Vital Signs Vital signs: Vital Signs Temp 99.7 F H 08/17/21 11:29 Pulse 91 08/17/21 11:29 Resp 16 08/17/21 11:29 BP 122/80 08/17/21 11:29 Pulse Ox 90 L 08/17/21 11:29 FiO2 Intake & Output 08/16/21 08/17/21 08/17/21 18:59 06:59 18:59 Intake Total 300 1200 Balance 300 1200 Weight 92.986 kg Intake: Intake, IV Titration 300 1200 Amount Sodium Chloride 0.9% 1, 300 1200 000 ml @ 150 mls/hr IV . Q6H40M [facility] Rx#:[id number] Other: Voiding Method Toilet Toilet - Labs CBC & Chem 7: 08/17/21 05:27 07/13/22 05:27 Labs: Abnormal Lab Results - Last 24 Hours (Table) 08/17/21 08/17/21 Range/Units 05:27 05:27 Hgb 12.4 L (13.0-17.5) gm/dL Hct 38.3 L (39.0-53.0) % Calcium 8.1 L (8.7-10.3) mg/dL Total Bilirubin 1.90 H (0.30-1.20) mg/dL AST 108 H (14-35) U/L ALT 401 H (10-49) U/L Alkaline Phosphatase 131 H (41-126) U/L Total Protein 5.7 L (6.2-8.2) g/dL Albumin 3.6 L (3.8-4.9) g/dL Amylase 194 H (23-121) U/L Lipase 343 H (14-60) U/L
--- NOTE | 2021-08-17 16:45 | P.PN ---
Progress Note - Text Progress Note Date: 08/17/21 Attempted to call Enrrique at [phone] to discuss 's status, however there was initially difficulty with the line and after third attempt there was no answer.
[2021-08-18] MEDS: PIPERACILLIN-TAZOBACTAM 3.375 GM in SODIUM CHLORIDE 0.9% 100 ML IVPB SCH ×4 (00:17→23:24)
[2021-08-18] MEDS: SODIUM CHLORIDE 0.9% 1,000 ML IV SCH ×4 (00:18→23:24)
[2021-08-18] MEDS: HYDROmorphone 1 MG/ML 1 ML SYRINGE IVP PRN ×7 (01:29→21:52)
[2021-08-18] MEDS: PANTOPRAZOLE 40 MG/10 ML VIAL IV SCH (07:37)
[2021-08-18 08:53] LABS: HCT 38.1 % (39.6-50.0); HGB 11.9 g/dL (13.0-17.0); MCH 24.3 pg (27.0-32.0); MCHC 31.2 g/dL (32.0-37.0); MCV 77.9 fL (80.0-97.0); Mean Platelet Volume 10.7 fL (9.5-12.2); NRBC Per 100 WBC 0 /100 WBCS (0.0-0.0); Platelet Count 167 X 10*3/uL (140-440); RBC 4.89 X 10*6/uL (4.40-5.60); RDW 14.5 % (11.5-14.5)
[2021-08-18 09:20] LABS: African American GFR (CKD) 122.5 (60.0-200.0); Albumin 3.4 g/dL (3.8-4.9); Albumin/Globulin Ratio 1.55 (1.60-3.17); Anion Gap 11.5 mmol/L (10.00-18.00); BUN/Creat Ratio 15.22 Ratio (12.00-20.00); Blood Urea Nitrogen 13.7 mg/dL (9.0-27.0); Calcium 8.2 mg/dL (8.7-10.3); Carbon Dioxide 24.5 mmol/L (20.0-27.5); Globulin 2.2 g/dL (1.6-3.3); Non-African American GFR(CKD) 105.7 (60.0-200.0); Potassium 3.9 mmol/L (3.5-5.5); Total Bilirubin 1.2 mg/dL (0.30-1.20); Total Protein 5.6 g/dL (6.2-8.2)
--- NOTE | 2021-08-18 10:33 | P.PN ---
Subjective Progress Note Date: 08/18/21 Principal diagnosis: Acute pancreatitis 41-year-old male who presented to the emergency department 2 days ago with complaints of abdominal pain radiating to his back and associated with nausea and vomiting. He was found to have labs consistent with acute pancreatitis. CT of the abdomen and pelvis with her concerning for choline lithiasis possible choledocholithiasis. Patient underwent MRCP showing choledocholithiasis, cholelithiasis. He also had a spike in his temperature to 102.4 yesterday, this morning temperature was 100.0. He states pain is improving but he still having mid epigastric and right upper quadrant pain needing to take pain medication every 3-4 hours. Denies any nausea or vomiting. WBC 9.6 hemoglobin 11.9 platelet count 167,000 total bilirubin 1.2 AST 29 ALT 223 alkaline phosphatase 104 lipase 63 Objective - Vital Signs Vital signs: Vital Signs Temp 100 F H 08/18/21 04:28 Pulse 95 08/18/21 04:28 Resp 16 08/18/21 04:28 BP 130/77 08/18/21 04:28 Pulse Ox 94 L 08/18/21 04:28 FiO2 Intake & Output 08/17/21 08/18/21 08/18/21 18:59 06:59 18:59 Intake Total 1400 Balance 1400 Intake: Intake, IV Titration 1400 Amount Piperacillin-Tazobactam 3 200 .375 gm In Sodium Chloride 0.9% 100 ml @ 25 mls/hr IVPB Q8HR [facility] Rx# :[id number] Sodium Chloride 0.9% 1, 1200 000 ml @ 100 mls/hr IV . Q10H [facility] Rx#:[id number] Other: Voiding Method Toilet Toilet # Voids 3 - Exam General appearance: The patient is alert, oriented, appears in no acute distress. HET: Head is normocephalic and atraumatic. Conjunctiva pink. Sclera anicteric. Neck: Supple without lymphadenopathy. Abdomen: Soft, diffuse tenderness, greatest tenderness to palpation in the epigastric and right upper quadrant. Nondistended with bowel sounds. No guarding or rigidity. Extremities: Normal skin color and turgor. No pedal edema Skin: No rashes, no jaundice Neurological: No focal deficits. Alert and oriented x3. - Labs CBC & Chem 7: 08/18/21 05:21 08/18/21 05:21 Labs: Abnormal Lab Results - Last 24 Hours (Table) 08/17/21 08/18/21 08/18/21 Range/Units 05:27 05:21 05:21 Hgb 11.9 L (13.0-17.0) g/dL Hct 38.1 L (39.6-50.0) % MCV 77.9 L (80.0-97.0) fL MCH 24.3 L (27.0-32.0) pg MCHC 31.2 L (32.0-37.0) g/dL Calcium 8.1 L 8.2 L (8.7-10.3) mg/dL Total Bilirubin 1.90 H (0.30-1.20) mg/dL AST 108 H (14-35) U/L ALT 401 H 223 H (10-49) U/L Alkaline Phosphatase 131 H (41-126) U/L Total Protein 5.7 L 5.6 L (6.2-8.2) g/dL Albumin 3.6 L 3.4 L (3.8-4.9) g/dL Albumin/Globulin Ratio 1.55 L (1.60-3.17) g/dL Amylase 194 H (23-121) U/L Lipase 343 H 63 H (14-60) U/L Assessment and Plan (1) Pancreatitis Narrative/Plan: 41-year-old male with no significant past medical history presented to the emergency department with the complaints of acute sharp abdominal pain radiating to his back and associated with nausea and vomiting. Labs were consistent with pancreatitis. He had a CT of the abdomen and pelvis that did show cholelithiasis with no dilated ducts. No previous history of pancreatitis, admits to drinking a few times a week 2-3 beers at a time. No past history of alcohol abuse no previous history of pancreatitis and reports no new medications. Likely dealing with a gallstone pancreatitis possible choledocholithiasis although CT is not showing evidence of dilated ducts. MRCP shows cholelithiasis, choledocholithiasis. Labs continue to improve. Likely plan is to move forward with ERCP in 1-2 days. Current Visit: Yes Status: Acute Code(s): K85.90 - ACUTE PANCREATITIS WITHOUT NECROSIS OR INFECTION, UNSP SNOMED Code(s): 33129724 (2) Choledocholithiasis Current Visit: Yes Status: Acute Code(s): K80.50 - CALCULUS OF BILE DUCT W/O CHOLANGITIS OR CHOLECYST W/O OBST SNOMED Code(s): 670189004 Plan: 1. Continue symptomatic and supportive care 2. Antiemetics as needed, pain medication as needed 3. Protonix 40 mg daily 4. Daily CBC, CMP, lipase 5. Nothing by mouth 6. Consult to General surgery for cholelithiasis, gallstone pancreatitis 7. Patient is scheduled for ERCP this afternoon Thank you for this consultation, we will continue to follow. Dr. Lydia Diaz I agree with the dictator's note, documented as a scribe by Laura Valente.
--- NOTE | 2021-08-18 11:11 | P.PN ---
Subjective Progress Note Date: 08/18/21 CHIEF COMPLAINT: Gallstone pancreatitis HISTORY OF PRESENT ILLNESS: Patient complains of epigastric and right upper quadrant abdominal pain. He reports his pain the same at 8 out of 10. Denies any nausea or vomiting. He is scheduled for ERCP today. Patient has been having fevers. T-max of 102.4 mild tachycardia heart rate 105. WBC 9.60 Hgb 11.9 total bilirubin normalized at 1.2 AST normal at 29 ALT trending down from 401-223 alk phos 104 lipase improved at 63. PHYSICAL EXAM: VITAL SIGNS: Reviewed. GENERAL: Well-developed in no acute distress. HEENT: No sclera icterus. Extraocular movements grossly intact. Moist buccal mucosa. Head is atraumatic, normocephalic. ABDOMEN: Soft. Nondistended. Epigastric tenderness and right upper quadrant tenderness NEUROLOGIC: Alert and oriented. Cranial nerves II through XII grossly intact. ASSESSMENT: 1. Acute gallstone pancreatitis 2. Choledocholithiasis PLAN: -ERCP with GI service today -Patient will require laparoscopic cholecystectomy. This can be completed outpatient. -Continue antibiotics -Continue to monitor LFTs -Continue pain medication as needed -Continue IV fluids Physician Molding Room Supervisor note has been reviewed by physician. Signing provider agrees with the documented findings, assessment, and plan of care. I have personally seen and examined the patient, reviewed the BUSINESS DEVELOPMENT ASSISTANT /PAs history, exam and MDM and agree with the assessment and plan as written. Based on total visit time, I have performed more than 50% of the visit. As above: Patient says he is still having some pain. He appears comfortable however. He did have fevers over the last 24 hours. Suspect some degree of cholangitis. Await ERCP today. Continue antibiotics. Will follow. Objective - Vital Signs Vital signs: Vital Signs Temp 100 F H 08/18/21 04:28 Pulse 95 08/18/21 04:28 Resp 16 08/18/21 04:28 BP 130/77 08/18/21 04:28 Pulse Ox 94 L 08/18/21 04:28 FiO2 Intake & Output 08/17/21 08/18/21 08/18/21 18:59 06:59 18:59 Intake Total 1400 Balance 1400 Intake: Intake, IV Titration 1400 Amount Piperacillin-Tazobactam 3 200 .375 gm In Sodium Chloride 0.9% 100 ml @ 25 mls/hr IVPB Q8HR [facility] Rx# :[id number] Sodium Chloride 0.9% 1, 1200 000 ml @ 100 mls/hr IV . Q10H [facility] Rx#:[id number] Other: Voiding Method Toilet Toilet # Voids 3 - Labs CBC & Chem 7: 08/18/21 05:21 08/18/21 05:21 Labs: Abnormal Lab Results - Last 24 Hours (Table) 08/18/21 08/18/21 Range/Units 05:21 05:21 Hgb 11.9 L (13.0-17.0) g/dL Hct 38.1 L (39.6-50.0) % MCV 77.9 L (80.0-97.0) fL MCH 24.3 L (27.0-32.0) pg MCHC 31.2 L (32.0-37.0) g/dL Calcium 8.2 L (8.7-10.3) mg/dL ALT 223 H (10-49) U/L Total Protein 5.6 L (6.2-8.2) g/dL Albumin 3.4 L (3.8-4.9) g/dL Albumin/Globulin Ratio 1.55 L (1.60-3.17) g/dL Lipase 63 H (14-60) U/L
[2021-08-18] MEDS: HYDROcodone/APAP 7.5-325MG 1 EACH TAB PO PRN (12:13)
[2021-08-18] MEDS ORDERED: DOCUSATE 100 MG CAP PO PRN (13:22)
[2021-08-18 13:44] LABS: Appearance,Urine Clear (Clear); Bilirubin,Urine Negative (Negative); Blood,Urine Small (Negative); Color,Urine Yellow; Glucose,Urine (UA) 1+ (Negative); Ketones,Urine 1+ (Negative); Leukocyte Esterase,Urine Negative (Negative); Mucus,Urine Rare /hpf; Nitrite,Urine Negative (Negative); Protein,Urine 2+ (Negative); RBC,Urine 1 /hpf (0-5); Specific Gravity,Urine 1.037 (1.001-1.035); Urobilinogen,Urine <2.0 mg/dL (<2.0); WBC,Urine 2 /hpf (0-5)
--- NOTE | 2021-08-18 14:16 | P.PN ---
Subjective Progress Note Date: 08/18/21 This is a pleasant 41-year-old male with no significant past medical history presents to the with concern for abdominal pain and nausea vomiting. He is a former smoker quit in 2014, reports drinking 2-3 beers a few times per week, not daily. Patient is in the area vacationing with his . Around 4 pm yesterday he began having abdominal pain epigastric rates it as a sharp rating 8 to 9 out of 10. He also has nausea and vomiting that began sunday night. Denies hematemesis. No fever, no chills. No diarrhea, no melena. No recent diet changes, no recent illness. He has no history of pancreas or gallbladder issues. Nausea and vomiting has improved, abdominal pain is diffuse and has improved somewhat with pain medication. Once the medication wears off at around the 2.5 to 3 hour stephane, pain returns at a 9/10. On admission white count was 9.1, glucose final 118. Liver enzymes were found to be elevated total bili 3.0, AST 710, ALT 866, alk phos 132. Amylase is elevated at 1003, lipase elevated at 12,637. Abdominal pelvis CT completed shows some fluid around the pancreas consistent with possible pancreatitis. There is also calcified gallstones. Gallbladder duct does not appear dilated on imaging. Patient is admitted for possible gallstone pancreatitis, he has been nothing by mouth and is receiving fluids with normal saline. Amylase and lipase have improved, liver enzymes have also improved somewhat with hydration. He has been evaluated by surgical services who will plan for MRCP to rule out common bile duct stone. Enzymes will be trended. Pt is afebrile, heart rate 92, blood pressure 142/82, 100% room air. 08/17/2021 Patient evaluated today resting in bed. 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 MRCP shows evidence for choledocholelisthiasis, cholelisthiasis, pancreatitis, cholecystitis. There is also evidence of basilar atelectasis on MRCP. Patient was started on IV zosyn. Pain today has slightly improved, mostly epigastric left upper quadrant pain. There is tenderness to palpation. He denies nausea, no vomiting. Pain is about 7/10 before pain meds. White count continues to be negative at 7.3. Oxygen saturation is 90 to 93% on room air. He does have some faint basilar crackles on exam. Liver enzymes are improving, amylase is now 194, lipase 343. GI services plan for ERCP in 1-2 days. General surgery is on consult and following patient. 08/18/2021 Patient is resting in bed. Plan is for ERCP later this afternoon with Dr Denis Diaz. Patient continues to be febrile his T-max overnight 102.4, he is also tachycardic. Infectious disease has been consulted. He continues with mostly upper abdominal pain rating a 7/10 and reports bloating. Denies passing gas, has not had BM since prior to admission. We will add bowel regimen as he continues on narcotics for pain management. He does have some shortness of breath report ed. Chest xray was completed which shows small to tiny left pleural effusion and bibasilar acute infiltrate/atelectasis. Blood cultures are pending, urinalysis showing proteinurea, glucose, ketones with small blood. No evidence for urinary tract infection. Labs reviewed; white count 9.60, hgb 11.9, MCV 77.9, sodium 136, potassium 3.9, BUN 13.7, creatinine 0.9, calcium 8.2. Total bili is now 1.20, AST 29, ALT 223, alk phos 104, total protein 5.6, albumin 3.4. His lipase is now 63. Review of Systems Constitutional: Denied any fatigue. Reports fever. Cardio vascular: denied any chest pain, palpitations Gastrointestinal: denied any nausea, vomiting, diarrhea. Reports abdominal pain. Pulmonary: Reports mild shortness of breath, no cough. Neurologic denied any new focal deficits All inpatient medications were reviewed and appropriate changes in these medications as dictated in the interval history and assessment and plan. PHYSICAL EXAMINATION: GENERAL: The patient is alert and oriented x3, not in any acute distress. Well developed, well nourished. HEENT: Pupils are round and equally reacting to light. EOMI. No scleral icterus. No conjunctival pallor. Normocephalic, atraumatic. No pharyngeal erythema. No thyromegaly. CARDIOVASCULAR: S1 and S2 present. No murmurs, rubs, or gallops. PULMONARY: Faint basilar crackles. ABDOMEN: Soft, tender, nondistended, normoactive bowel sounds. No palpable organomegaly. MUSCULOSKELETAL: No joint swelling or deformity. EXTREMITIES: No cyanosis, clubbing, or pedal edema. NEUROLOGICAL: Gross neurological examination did not reveal any focal deficits. SKIN: No rashes. Assessment and Plan Assessment Possible acute pancreatitis could be gallstone pancreatitis Acute ascending cholangitis with sepsis with evidence of choledocholisthiasis, cholelisthiasis on MRCP Fever, tachycardia most likely from infection continue to monitor Elevated LFT's, improving Hypertension most likely from pain Hyperglycemia, improved A1C 5.7 Former smoker GI Prophylaxis IV protonix Full Code Plan This is a 41 year old male with complaint of abdominal pain with associated nausea vomiting. N/V has improved. He underwent MRCP and GI services is planning for an ERCP this afternoon. Patient continues with fever, tachycardia. He is being hydrated with normal saline and continues on IV zosyn empirically. Infectious disease has been consulted. Surgical services is following the patient for possible cholecystectomy inpatient vs. outpatient. There is also evidence for atelectasis on MRCP and oxygen saturation is 90 to 93% on room air, patient does have basilar crackles and is using incentive spirometer at the bedside. Follow up chest xray shows infiltrate vs. atelectasis with small left pleural effusion. We will repeat labs in the morning and continue to monitor temperature. He continues on IV fluids with normal saline. The impression and plan of care has been dictated by Nurse Verena Prac titioner as directed. Dr. Kwasi MD I have performed a history and physical examination and medical decision making of this patient, discussed the same with the dictator, and agree with the dictators assessment and plan as written, documented as a scribe. Based on total visit time, I have performed more than 50% of this visit. Objective - Vital Signs Vital signs: Vital Signs Temp 100.0 F H 08/18/21 11:50 Pulse 98 08/18/21 11:50 Resp 18 08/18/21 11:50 BP 137/88 08/18/21 11:50 Pulse Ox 95 08/18/21 11:50 FiO2 Intake & Output 08/17/21 08/18/21 08/18/21 18:59 06:59 18:59 Intake Total 1400 Balance 1400 Intake: Intake, IV Titration 1400 Amount Piperacillin-Tazobactam 3 200 .375 gm In Sodium Chloride 0.9% 100 ml @ 25 mls/hr IVPB Q8HR [facility] Rx# :[id number] Sodium Chloride 0.9% 1, 1200 000 ml @ 100 mls/hr IV . Q10H [facility] Rx#:[id number] Other: Voiding Method Toilet Toilet # Voids 3 - Labs CBC & Chem 7: 08/18/21 05:21 08/18/21 05:21 Labs: Abnormal Lab Results - Last 24 Hours (Table) 08/18/21 08/18/21 08/18/21 Range/Units 05:21 05:21 12:40 Hgb 11.9 L (13.0-17.0) g/dL Hct 38.1 L (39.6-50.0) % MCV 77.9 L (80.0-97.0) fL MCH 24.3 L (27.0-32.0) pg MCHC 31.2 L (32.0-37.0) g/dL Calcium 8.2 L (8.7-10.3) mg/dL ALT 223 H (10-49) U/L Total Protein 5.6 L (6.2-8.2) g/dL Albumin 3.4 L (3.8-4.9) g/dL Albumin/Globulin Ratio 1.55 L (1.60-3.17) g/dL Lipase 63 H (14-60) U/L Ur Specific [place] 1.037 H (1.001-1.035) Urine Protein 2+ H (Negative) Urine Glucose (UA) 1+ H (Negative) Urine Ketones 1+ H (Negative) Urine Blood Small H (Negative) Urine Mucus Rare H (None) /hpf Assessment and Plan Time with Patient: Less than 30
[2021-08-18] MEDS: PHENAZOPYRIDINE 100 MG TAB PO SCH ×2 (16:14→22:55)
[2021-08-18] MEDS ORDERED: INDOMETHACIN 50MG SUPPOSITORY RECTAL ONE (16:30)
[2021-08-18 16:47] VITALS: BMI 30.2
[2021-08-18] MEDS ORDERED: LIDOCAINE 2% INJ 20 MG/ML (2 ML VIAL) ONE (17:25)
[2021-08-18] MEDS ORDERED: PROPOFOL 10 MG/ML 20 ML VIAL IV ONE (17:25)
[2021-08-18] MEDS ORDERED: MIDAZOLAM 2 MG/2 ML VIAL ONE (17:25)
[2021-08-18] MEDS ORDERED: fentaNYL (PF) 50 MCG/ML 2 ML AMP ONE (17:25)
[2021-08-18] MEDS ORDERED: LACTATED RINGERS 1,000 ML IV ONE (17:27)
[2021-08-18] MEDS ORDERED: IOPAMIDOL-300 50ML BTL INJ ONE (17:55)
--- NOTE | 2021-08-18 18:08 | P.PCN ---
Date of Procedure: 08/18/21 Procedure(s) Performed: Brief history: Patient is a 41 year-old pleasant white male admitted hospital with acute gallstone pancreatic titers. He was noted to have a bilirubin of 4 with elevated AST and AST and lipase consistent with gallstone appendicitis. He did have an MRCP done yesterday that showed evidence of small CBD stone. His symptoms have improved and lipase has normalized. Serum transaminases as well as bilirubin have also is significantly improved. Because of the CBD stone noted on MRCP he is scheduled for an ERCP today. Procedure performed: ERCP with biliary sphincterotomy and balloon stone extraction Preoperative diagnoses: Acute gallstone pancreatitis an MRCP revealing small CBD stone IV sedation per anesthesia: Procedure: After informed consent was obtained from the patient and after the risks benefits and complications including bleeding perforation and pancreatitis ex plained in detail the patient was brought into the endoscopy unit. The patient was placed in prone position and IV conscious sedation was administered by anesthesia under continuous monitoring. The Olympus side-viewing duodenoscope was then inserted into the mouth and esophagus intubated without any difficulty. The scope was gradually advanced into the stomach and duodenum. The major papilla was identified without any difficulty. Initial cannulation resulted in opacification of the pancreatic duct appeared normal. Subsequently a guidewire was able to cannulate the common bile duct and upon injection of the dye there was a small 2-3 mm filling defect noted in the distal common bile duct. At this time the catheter was exchanged over a guidewire with a biliary sphincterotome and a sphincterotomy was performed at 12 o'clock position and extended to 1 cm. Following this an 8 mm balloon was passed over the guidewire into the proximal CBD, gently inflated and withdrawn and a small stone was seen exiting the ampulla. This maneuver was repeated 2 more times and no other stones were extracted. Occlusion cholangio-Blayne was performed and no filling defects were seen and the patient tolerated the procedure Impression: Normal-appearing pancreatic duct Normal common bile duct with a small filling defect measuring 2 mm in size in the distal CBD, status post biliary stent enterotomy followed by CBD stone extraction as described above Recommendations: The findings of this examination were discussed with the patient. He will be maintained on a clear liquid diet today. Repeat labs in the morning. If he is doing well he can be discharged home tomorrow with outpatient follow-up with general surgery for cholecystectomy in the near future
--- NOTE | 2021-08-18 20:37 | FL ---
EXAMINATION TYPE: FL ERCP DATE OF EXAM: 08/18/2021 CLINICAL HISTORY: Pancreatitis. TECHNIQUE: Fluoroscopy. COMPARISON: None. FINDINGS: Fluoroscopic guidance was provided during ERCP procedure performed by Dr. Diaz. A total of 67 seconds of fluoroscopic time was utilized during the procedure and 2 spot images was acquired. Please refer to procedure note for further details. IMPRESSION: As Above.
[2021-08-19] MEDS: HYDROmorphone 1 MG/ML 1 ML SYRINGE IVP PRN ×7 (02:56→22:27)
[2021-08-19] MEDS: PIPERACILLIN-TAZOBACTAM 3.375 GM in SODIUM CHLORIDE 0.9% 100 ML IVPB SCH (08:05)
[2021-08-19] MEDS: PANTOPRAZOLE 40 MG/10 ML VIAL IV SCH (08:05)
[2021-08-19] MEDS: PHENAZOPYRIDINE 100 MG TAB PO SCH ×3 (08:06→22:40)
--- NOTE | 2021-08-19 08:10 | P.CONS ---
History of Present Illness - Reason for Consult Consult date: 08/18/21 Fever/ pancreatitis Requesting physician: Gema Rice - Chief Complaint Abdominal pain x one day - History of Present Illness Patient is a 41-year-old male presenting to the hospital 2 days ago for an acute epigastric abdominal pain that apparently woke up the patient around 3 AM patient did have 2 episodes of vomiting family member gave him some Zofran with some relief and Pepto-Bismol subsequently the patient was brought into the ER patient was describing the epigastric pain to be more of a sharp in nature intensity is almost 10 out of 10 in severity by the time he presented to the hospital with no radiation patient denies having any chest pain or shortness of breath or cough no URI symptoms no diarrhea on presentation to the hospital he did have low-grade fever 100 F subsequently he spike a fever of 102.4 F patient on presentation to the hospital did have a normal white count kidney function has been normal did have elevated liver enzymes as well as elevated amylase and lipase however they are trending down urine has been negative blood culture has been negative so far patient did have a CT of abdominal pelvis fluid in the left retroperitoneal area concerning for acute pancreatitis no significant pancreatic swelling however was noticed calcified gallstone bile ducts nondilated patient has been evaluated by general surgery and GI services the patient did have MRCP which was consistent with choledochal lithiasis correlate for pancreatitis and cholecystitis patient is scheduled for ERCP this evening infectious disease was consulted because of fever Review of Systems Positive point has been mentioned in the HPI rest of the systems are negative Past Medical History Past Medical History: No Reported History History of Any Multi-Drug Resistant Organisms: None Reported Past Surgical History: No Surgical Hx Reported Additional Past Anesthesia/Blood Transfusion Reaction / Comm: Pt has never had surgery Smoking Status: Former smoker Past Alcohol Use History: Occasional Past Drug Use History: None Reported - Past Family History Mother Family Medical History: Cancer Additional Family Medical History / Comment(s): Breast cancer survivor Father Family Medical History: Cancer Additional Family Medical History / Comment(s): Lung cancer. Father is living. Medications and Allergies Home Medications Medication Instructions Recorded Confirmed Type No Known Home Medications 08/15/21 08/15/21 History Allergies Allergy/AdvReac Type Severity Reaction Status Date / Time No Known Allergies Allergy Verified 08/15/21 22:10 Physical Exam Vitals: Vital Signs Temp Pulse Resp BP Pulse Ox 08/18/21 04:28 100 F H 95 16 130/77 94 L 08/17/21 21:13 99.1 F 08/17/21 21:00 102.4 F H 105 H 18 119/76 90 L 08/17/21 20:00 18 08/17/21 11:29 99.7 F H 91 16 122/80 90 L Intake and Output 08/17/21 08/18/21 08/18/21 22:59 06:59 14:59 Intake Total 1400 Balance 1400 Intake: Intake, IV Titration 1400 Amount Piperacillin-Tazobactam 3 200 .375 gm In Sodium Chloride 0.9% 100 ml @ 25 mls/hr IVPB Q8HR [facility] Rx# :[id number] Sodium Chloride 0.9% 1, 1200 000 ml @ 100 mls/hr IV . Q10H [facility] Rx#:[id number] Other: Voiding Method Toilet # Voids 3 GENERAL DESCRIPTION: Middle-aged male lying in bed, no distress. No tachypnea or accessory muscle of respiration use. HEENT: Shows Pallor , no scleral icterus. Oral mucous membrane is dry. No pharyngeal erythema or thrush NECK: Trachea central, no thyromegaly. LUNGS: Unlabored breathing. Clear to auscultation anteriorly. No wheeze or crackle. HEART: S1, S2, regular rate and rhythm. No loud murmur ABDOMEN: Soft, mild epigastric tenderness , no guarding or rigidity, no organomegaly EXTREMITIES: No edema of feet. SKIN: No rash, no masses palpable. NEUROLOGICAL: The patient is awake, alert, oriented x3, mood and affect normal. Results CBC & Chem 7: 08/19/21 07:27 08/19/21 07:27 Labs: Abnormal Lab Results - Last 24 Hours (Table) 08/17/21 08/18/21 08/18/21 Range/Units 05:27 05:21 05:21 Hgb 11.9 L (13.0-17.0) g/dL Hct 38.1 L (39.6-50.0) % MCV 77.9 L (80.0-97.0) fL MCH 24.3 L (27.0-32.0) pg MCHC 31.2 L (32.0-37.0) g/dL Calcium 8.1 L 8.2 L (8.7-10.3) mg/dL Total Bilirubin 1.90 H (0.30-1.20) mg/dL AST 108 H (14-35) U/L ALT 401 H 223 H (10-49) U/L Alkaline Phosphatase 131 H (41-126) U/L Total Protein 5.7 L 5.6 L (6.2-8.2) g/dL Albumin 3.6 L 3.4 L (3.8-4.9) g/dL Albumin/Globulin Ratio 1.55 L (1.60-3.17) g/dL Amylase 194 H (23-121) U/L Lipase 343 H 63 H (14-60) U/L Assessment and Plan (1) Choledocholithiasis Current Visit: Yes Status: Acute Code(s): K80.50 - CALCULUS OF BILE DUCT W/O CHOLANGITIS OR CHOLECYST W/O OBST SNOMED Code(s): 530532148 (2) Fever Current Visit: Yes Status: Acute Code(s): R50.9 - FEVER, UNSPECIFIED SNOMED Code(s): 142531294 Plan: 1patient presented to hospital with sepsis and respiratory have a fever tachycardia source is likely acute gallstone pancreatitis concerning for choledocholithiasis and cholecystitis likely from enteric gram-negative pathogen. 2patient to continue with Zosyn 3.375 g every 8 hours. 3waiting for ERCP followed by possible cholecystectomy. We will follow on clinical condition and cultures to further adjust medication if needed Thank you for this consultation will follow this patient along with you Time with Patient: Greater than 30
--- NOTE | 2021-08-19 10:44 | P.PN ---
Subjective Progress Note Date: 08/19/21 Principal diagnosis: Acute pancreatitis 41-year-old male who presented to the emergency department 2 days ago with complaints of abdominal pain radiating to his back and associated with nausea and vomiting. He was found to have labs consistent with acute pancreatitis. CT of the abdomen and pelvis with her concerning for choline lithiasis possible choledocholithiasis. Patient underwent MRCP showing choledocholithiasis, cholelithiasis. Yesterday he underwent ERCP with biliary sphincterectomy and balloon stone extraction. Today he states he is feeling much better. Abdominal pain is nearly gone. He is tolerating clear liquid diet. He denies any nausea or vomiting. He has been afebrile. Today's labs are currently pending. Objective - Vital Signs Vital signs: Vital Signs Temp 98.2 F 08/19/21 04:25 Pulse 83 08/19/21 04:25 Resp 18 08/19/21 04:25 BP 123/76 08/19/21 04:25 Pulse Ox 95 08/19/21 04:25 FiO2 Intake & Output 08/18/21 08/19/21 08/19/21 18:59 06:59 18:59 Intake Total 700 Balance 700 Weight 92.986 kg Intake: IV 700 Other: Voiding Method Toilet # Voids 3 - Exam General appearance: The patient is alert, oriented, appears in no acute distress. HET: Head is normocephalic and atraumatic. Conjunctiva pink. Sclera anicteric. Neck: Supple without lymphadenopathy. Abdomen: Soft, mild epigastric tenderness. Nondistended with bowel sounds. No guarding or rigidity. Extremities: Normal skin color and turgor. No pedal edema Skin: No rashes, no jaundice Neurological: No focal deficits. Alert and oriented x3. - Labs CBC & Chem 7: 08/19/21 07:27 08/19/21 07:27 Labs: Abnormal Lab Results - Last 24 Hours (Table) 08/18/21 Range/Units 12:40 Ur Specific [place] 1.037 H (1.001-1.035) Urine Protein 2+ H (Negative) Urine Glucose (UA) 1+ H (Negative) Urine Ketones 1+ H (Negative) Urine Blood Small H (Negative) Urine Mucus Rare H (None) /hpf Microbiology - Last 24 Hours (Table) 08/17/21 14:03 Blood Culture - Preliminary Blood No Growth after 24 hours Assessment and Plan (1) Pancreatitis Narrative/Plan: 41-year-old male with no significant past medical history presented to the emergency department with the complaints of acute sharp abdominal pain radiating to his back and associated with nausea and vomiting. Labs were consistent with pancreatitis. He had a CT of the abdomen and pelvis that did show cholelithiasis with no dilated ducts. No previous history of pancreatitis, admits to drinking a few times a week 2-3 beers at a time. No past history of alcohol abuse no previous history of pancreatitis and reports no new medications. Likely dealing with a gallstone pancreatitis possible choledocholithiasis although CT is not showing evidence of dilated ducts. MRCP shows cholelithiasis, choledocholithiasis. Labs continue to improve. Likely plan is to move forward with ERCP in 1-2 days. Current Visit: Yes Status: Acute Code(s): K85.90 - ACUTE PANCREATITIS WITHOUT NECROSIS OR INFECTION, UNSP SNOMED Code(s): 51762413 (2) Choledocholithiasis Narrative/Plan: Patient underwent ERCP with biliary sphincterectomy and balloon stone extraction. Current Visit: Yes Status: Acute Code(s): K80.50 - CALCULUS OF BILE DUCT W/O CHOLANGITIS OR CHOLECYST W/O OBST SNOMED Code(s): 606390173 Plan: 1. Continue symptomatic and supportive care 2. Antiemetics as needed, pain medication as needed 3. Protonix 40 mg daily 4. Advance to low-fat diet for lunch 5. If patient is able to tolerate lunch and labs are continuing to trend down patient may be cleared for discharge from gastroenterology 6. It was discussed with patient importance of following up with the general s urgeon for removal of his gallbladder patient verbalized understanding. He would like to seek out surgeon near his home in [place]. Thank you for allowing us to participate in the care of the patient, the GI service will sign off, gastroenterology will not be available at the hospital this weekend. If further evaluation by gastroenterology is required the patient will need transfer as per the primary team's discretion. Dr. Lydia Diaz I agree with the dictator's note, documented as a scribe by Laura Valente.
[2021-08-19 11:21] LABS: African American GFR (CKD) 107.9 (60.0-200.0); Albumin 3.5 g/dL (3.8-4.9); Albumin/Globulin Ratio 1.35 (1.60-3.17); Anion Gap 11.7 mmol/L (10.00-18.00); BUN/Creat Ratio 21.5 Ratio (12.00-20.00); Blood Urea Nitrogen 21.5 mg/dL (9.0-27.0); Calcium 8.8 mg/dL (8.7-10.3); Carbon Dioxide 27.3 mmol/L (20.0-27.5); Globulin 2.6 g/dL (1.6-3.3); Non-African American GFR(CKD) 93.1 (60.0-200.0); Potassium 4.1 mmol/L (3.5-5.5); Total Bilirubin 0.8 mg/dL (0.30-1.20); Total Protein 6.1 g/dL (6.2-8.2)
[2021-08-19 11:47] LABS: Basophils # (A) 0.02 X 10*3/uL (0.00-0.10); Basophils % (A) 0.3 %; Eosinophils # (A) 0.22 X 10*3/uL (0.04-0.35); Eosinophils % (A) 2.8 %; HCT 42.7 % (39.6-50.0); HGB 12.9 g/dL (13.0-17.0); Immature Grans, Automated 0.4 %; Lymphocytes # (A) 0.91 X 10*3/uL (0.90-5.00); Lymphocytes % (A) 11.5 %; MCH 24.1 pg (27.0-32.0); MCHC 30.2 g/dL (32.0-37.0); MCV 79.8 fL (80.0-97.0); Mean Platelet Volume 11.2 fL (9.5-12.2); Monocytes # (A) 0.81 X 10*3/uL (0.20-1.00); Monocytes % (A) 10.3 %; NRBC Per 100 WBC 0 /100 WBCS (0.0-0.0); Neutrophils # (A) 5.91 X 10*3/uL (1.80-7.70); Neutrophils % (A) 74.7 %; Platelet Count 238 X 10*3/uL (140-440); RBC 5.35 X 10*6/uL (4.40-5.60); RDW 14.3 % (11.5-14.5)
[2021-08-19 12:14] VITALS: RESP 16
--- NOTE | 2021-08-19 13:07 | P.PN ---
Subjective Progress Note Date: 08/19/21 CHIEF COMPLAINT: Gallstone pancreatitis HISTORY OF PRESENT ILLNESS: Patient reports improvement in his abdominal pain. He is tolerating clear liquids. He is scheduled for a low-fat diet at lunch. He's had no further fevers. WBC is 7.9 Hgb 12.9+238 sodium is 139 potassium is 4.1 creatinine is 1.0 total bilirubin normalized at 0.80 AST normal 26 ALT trending down 223-157 alk phos 101 PHYSICAL EXAM: VITAL SIGNS: Reviewed. GENERAL: Well-developed in no acute distress. HEENT: No sclera icterus. Extraocular movements grossly intact. Moist buccal mucosa. Head is atraumatic, normocephalic. ABDOMEN: Soft. Nondistended. minimal tenderness epigastric area NEUROLOGIC: Alert and oriented. Cranial nerves II through XII grossly intact. ASSESSMENT: 1. Acute gallstone pancreatitis 2. Choledocholithiasis 3. Cholangitis PLAN: -Patient will require laparoscopic cholecystectomy. This can be completed outpatient with surgeon of his choice. Patient is from out of town. -Recommend discharging patient with antibiotics -Patient can be discharged from surgical standpoint when medically cleared and if he tolerates his lunch Physician Comsec Manager note has been reviewed by physician. Signing provider agrees with the documented findings, assessment, and plan of care. I have personally seen and examined the patient, reviewed the GARMENT ALTERATION EXAMINER /PAs history, exam and MDM and agree with the assessment and plan as written. Based on total visit time, I have performed more than 50% of the visit. As above: Patient is feeling better this morning however has subjective fevers currently. Thinks his pain is increased somewhat sedate as well. This morning liver enzymes are improved. He seems to be tolerating a diet. We'll recheck labs tomorrow. Continue antibiotics. Follow cultures. Objective - Vital Signs Vital signs: Vital Signs Temp 98.8 F 08/19/21 11:44 Pulse 88 08/19/21 11:44 Resp 16 08/19/21 11:44 BP 127/85 08/19/21 11:44 Pulse Ox 97 08/19/21 11:44 FiO2 Intake & Output 08/18/21 08/19/21 08/19/21 18:59 06:59 18:59 Intake Total 700 Balance 700 Weight 92.986 kg Intake: IV 700 Other: Voiding Method Toilet # Voids 3 - Labs CBC & Chem 7: 08/19/21 07:27 07 07:27 Labs: Abnormal Lab Results - Last 24 Hours (Table) 08/18/21 08/19/21 08/19/21 Range/Units 12:40 07:27 07:27 Hgb 12.9 L (13.0-17.0) g/dL MCV 79.8 L (80.0-97.0) fL MCH 24.1 L (27.0-32.0) pg MCHC 30.2 L (32.0-37.0) g/dL BUN/Creatinine Ratio 21.50 H (12.00-20.00) Ratio ALT 157 H (10-49) U/L Total Protein 6.1 L (6.2-8.2) g/dL Albumin 3.5 L (3.8-4.9) g/dL Albumin/Globulin Ratio 1.35 L (1.60-3.17) g/dL Ur Specific [place] 1.037 H (1.001-1.035) Urine Protein 2+ H (Negative) Urine Glucose (UA) 1+ H (Negative) Urine Ketones 1+ H (Negative) Urine Blood Small H (Negative) Urine Mucus Rare H (None) /hpf Microbiology - Last 24 Hours (Table) 08/17/21 14:03 Blood Culture - Preliminary Blood No Growth after 24 hours
--- NOTE | 2021-08-19 15:36 | P.PN ---
Subjective Progress Note Date: 08/19/21 Principal diagnosis: Fever likely cholangitis Patient is a 41-year-old male presenting to the hospital with acute abdominal pain nausea and vomiting patient has been diagnosed with the gallstone pancreatitis and did have evidence of choledocholithiasis in this patient who is status post ERCP and removal of the CBD stone completed evening of 08/18/2021. On today's evaluation that is 08/19/2021, the patient denies having any fever or any chills, the patient is breathing comfortably patient abdominal pain has decreased in intensity no nausea or vomiting no chest pain shortness of breath or cough did have a loose bowel movement Objective - Vital Signs Vital signs: Vital Signs Temp 98.8 F 08/19/21 11:44 Pulse 88 08/19/21 11:44 Resp 16 08/19/21 11:44 BP 127/85 08/19/21 11:44 Pulse Ox 97 08/19/21 11:44 FiO2 Intake & Output 08/18/21 08/19/21 08/19/21 18:59 06:59 18:59 Intake Total 700 Balance 700 Weight 92.986 kg Intake: IV 700 Other: Voiding Method Toilet # Voids 3 - Exam GENERAL DESCRIPTION: Middle-age male lying in bed in no distress RESPIRATORY SYSTEM: Unlabored breathing , decreased breath sounds at bases HEART: S1 S2 regular rate and rhythm , ABDOMEN: Soft , mild epigastric tenderness EXTREMITIES: No edema feet - Labs CBC & Chem 7: 08/19/21 07:27 08/19/21 07:27 Labs: Abnormal Lab Results - Last 24 Hours (Table) 08/18/21 08/19/21 08/19/21 Range/Units 12:40 07:27 07:27 Hgb 12.9 L (13.0-17.0) g/dL MCV 79.8 L (80.0-97.0) fL MCH 24.1 L (27.0-32.0) pg MCHC 30.2 L (32.0-37.0) g/dL BUN/Creatinine Ratio 21.50 H (12.00-20.00) Ratio ALT 157 H (10-49) U/L Total Protein 6.1 L (6.2-8.2) g/dL Albumin 3.5 L (3.8-4.9) g/dL Albumin/Globulin Ratio 1.35 L (1.60-3.17) g/dL Ur Specific [place] 1.037 H (1.001-1.035) Urine Protein 2+ H (Negative) Urine Glucose (UA) 1+ H (Negative) Urine Ketones 1+ H (Negative) Urine Blood Small H (Negative) Urine Mucus Rare H (None) /hpf Microbiology - Last 24 Hours (Table) 08/17/21 14:03 Blood Culture - Preliminary Blood No Growth after 24 hours Assessment and Plan (1) Fever Current Visit: Yes Status: Acute Code(s): R50.9 - FEVER, UNSPECIFIED SNOMED Code(s): 277163363 (2) Choledocholithiasis Current Visit: Yes Status: Acute Code(s): K80.50 - CALCULUS OF BILE DUCT W/O CHOLANGITIS OR CHOLECYST W/O OBST SNOMED Code(s): 204638142 Plan: 1patient presented to hospital with sepsis and respiratory have a fever tachycardia source is likely acute gallstone pancreatitis concerning for choledocholithiasis and cholecystitis likely from enteric gram-negative pathogen. 2patient is status post ERCP completed 08/18/2021 however the patient wants to cholecystectomy to be done locally close to his home town of [place]. 3we will discontinue Zosyn, start the patient on Unasyn if the patient remains to be afebrile today and his cultures remains to be negative will be able to finish therapy with oral Augmentin Time with Patient: Less than 30
[2021-08-19] MEDS: SODIUM CHLORIDE 0.9% 1,000 ML IV SCH ×2 (17:24→19:10)
[2021-08-19] MEDS: AMPICILLIN-SULBACTAM 3 GM in SODIUM CHLORIDE 0.9% 100 ML IVPB SCH ×2 (17:49→23:39)
--- NOTE | 2021-08-19 20:37 | P.PN ---
Subjective This is a pleasant 41-year-old male with no significant past medical history presents to the with concern for abdominal pain and nausea vomiting. He is a former smoker quit in 2014, reports drinking 2-3 beers a few times per week, not daily. Patient is in the area vacationing with his . Around 4 pm yesterday he began having abdominal pain epigastric rates it as a sharp rating 8 to 9 out of 10. He also has nausea and vomiting that began sunday night. Denies hematemesis. No fever, no chills. No diarrhea, no melena. No recent diet garcia es, no recent illness. He has no history of pancreas or gallbladder issues. Nausea and vomiting has improved, abdominal pain is diffuse and has improved somewhat with pain medication. Once the medication wears off at around the 2.5 to 3 hour stephane, pain returns at a 9/10. On admission white count was 9.1, glucose final 118. Liver enzymes were found to be elevated total bili 3.0, AST 710, ALT 866, alk phos 132. Amylase is elevated at 1003, lipase elevated at 12,637. Abdominal pelvis CT completed shows some fluid around the pancreas consistent with possible pancreatitis. There is also calcified gallstones. Gallbladder duct does not appear dilated on imaging. Patient is admitted for possible gallstone pancreatitis, he has been nothing by mouth and is receiving fluids with normal saline. Amylase and lipase have improved, liver enzymes have also improved somewhat with hydration. He has been evaluated by surgical services who will plan for MRCP to rule out common bile duct stone. Enzymes will be trended. Pt is afebrile, heart rate 92, blood pressure 142/82, 100% room air. 08/17/2021 Patient evaluated today resting in bed. He did have fever operational intelligence analyst with T Max 100.1 and incentive spirometer was ordered. MRCP shows evidence for choledocholelisthiasis, cholelisthiasis, pancreatitis, cholecystitis. There is also evidence of basilar atelectasis on MRCP. Patient was started on IV zosyn. Pain today has slightly improved, mostly epigastric left upper quadrant pain. There is tenderness to palpation. He denies nausea, no vomiting. Pain is about 7/10 before pain meds. White count continues to be negative at 7.3. Oxygen saturation is 90 to 93% on room air. He does have some faint basilar crackles on exam. Liver enzymes are improving, amylase is now 194, lipase 343. GI services plan for ERCP in 1-2 days. General surgery is on consult and following patient. 08/18/2021 Patient is resting in bed. Plan is for ERCP later this afternoon with Dr Denis Diaz. Patient continues to be febrile his T-max overnight 102.4, he is also tachycardic. Infectious disease has been consulted. He continues with mostly upper abdominal pain rating a 7/10 and reports bloating. Denies passing gas, has not had BM since prior to admission. We will add bowel regimen as he continues on narcotics for pain management. He does have some shortness of breath reported. Chest xray was completed which shows small to tiny left pleural effusion and bibasilar acute infiltrate/atelectasis. Blood cultures are pending, urinalysis showing proteinurea, glucose, ketones with small blood. No evidence for urinary tract infection. Labs reviewed; white count 9.60, hgb 11.9, MCV 77.9, sodium 136, potassium 3.9, BUN 13.7, creatinine 0.9, calcium 8.2. Total bili is now 1.20, AST 29, ALT 223, alk phos 104, total protein 5.6, albumin 3.4. His lipase is now 63. 08/19/2021 Patient today sitting up in bed states relieving offers abdominal pain after he had ERCP yesterday. Status post ERCP on 08/18 with biliary sphincterotomy and balloon stone extraction His abdominal pain this morning is 4-5/10 in severity, he has one bowel movement after been constipated for a while, it was green in color [place] solid and part of it is loose. He tolerates diet but needs to be monitored. He had fever yesterday of more than 100 Currently kept on IV Unasyn and normal saline at 60 mL/h Follow-up labs in the morning Patient where he will need cholecystectomy which can be done as an outpatient as per consult Objective - Vital Signs Vital signs: Vital Signs Temp 98.8 F 08/19/21 11:44 Pulse 88 08/19/21 11:44 Resp 16 08/19/21 11:44 BP 127/85 08/19/21 11:44 Pulse Ox 97 08/19/21 11:44 FiO2 Intake & Output 08/18/21 08/19/21 08/19/21 18:59 06:59 18:59 Intake Total 700 Balance 700 Weight 92.986 kg Intake: IV 700 Other: Voiding Method Toilet # Voids 3 - Exam GENERAL: The patient is alert and oriented x3, not in any acute distress. Well developed, well nourished. HEENT: Pupils are round and equally reacting to light. EOMI. No scleral icterus. No conjunctival pallor. Normocephalic, atraumatic. No pharyngeal erythema. No thyromegaly. CARDIOVASCULAR: S1 and S2 present. No murmurs, rubs, or gallops. PULMONARY: Chest is clear to auscultation, no wheezing or crackles. -ABDOMEN: Soft, mild upper abdominal tenderness, nondistended, normoactive bowel sounds. No palpable organomegaly. MUSCULOSKELETAL: No joint swelling or deformity. EXTREMITIES: No cyanosis, clubbing, or pedal edema. NEUROLOGICAL: Gross neurological examination did not reveal any focal deficits. SKIN: No rashes. no petechiae. - Labs CBC & Chem 7: 08/19/21 07:27 08/19/21 07:27 Labs: Abnormal Lab Results - Last 24 Hours (Table) 08/18/21 08/19/21 08/19/21 Range/Units 12:40 07:27 07:27 Hgb 12.9 L (13.0-17.0) g/dL MCV 79.8 L (80.0-97.0) fL MCH 24.1 L (27.0-32.0) pg MCHC 30.2 L (32.0-37.0) g/dL BUN/Creatinine Ratio 21.50 H (12.00-20.00) Ratio ALT 157 H (10-49) U/L Total Protein 6.1 L (6.2-8.2) g/dL Albumin 3.5 L (3.8-4.9) g/dL Albumin/Globulin Ratio 1.35 L (1.60-3.17) g/dL Ur Specific [place] 1.037 H (1.001-1.035) Urine Protein 2+ H (Negative) Urine Glucose (UA) 1+ H (Negative) Urine Ketones 1+ H (Negative) Urine Blood Small H (Negative) Urine Mucus Rare H (None) /hpf Microbiology - Last 24 Hours (Table) 08/17/21 14:03 Blood Culture - Preliminary Blood No Growth after 24 hours Assessment and Plan Assessment: acute gallstone pancreatitis, improved Acute ascending cholangitis with sepsis with evidence of choledocholisthiasis, cholelisthiasis, status post ERCP and stone extraction on 08/19 sepsis secondary to above, improving Elevated LFT's, improving Hypertension most likely from pain Hyperglycemia, improved A1C 5.7 Former smoker Plan: This is a pleasant 41 years old male who presents with pancreatitis secondary to gallstone disease and choledocholithiasis status post ERCP and stone extraction. Continue with Unasyn Continue with gentle hydration Monitor labs Several consultants on the case including surgery and infectious disease team GI team signed off Labs and medication were reviewed.. Continue same treatment. Continue with symptomatic treatment. Resume home medication. Monitor lytes and vitals. DVT and GI prophylaxis. Further recommendations as per clinical course of the patient DVT prophylaxis: Subcutaneous heparin GI Prophylaxis: Pepcid PT/OT: Pending Prognosis is guarded
[2021-08-19] MEDS: HEPARIN SODIUM,PORCINE/PF 5,000 UNIT/0.5 ML SYRINGE SQ SCH (22:28)
[2021-08-20] MEDS: HYDROmorphone 1 MG/ML 1 ML SYRINGE IVP PRN ×4 (01:29→10:39)
[2021-08-20] MEDS: AMPICILLIN-SULBACTAM 3 GM in SODIUM CHLORIDE 0.9% 100 ML IVPB SCH ×4 (06:04→23:34)
[2021-08-20] MEDS: PHENAZOPYRIDINE 100 MG TAB PO SCH ×3 (07:48→07:54)
[2021-08-20] MEDS: HEPARIN SODIUM,PORCINE/PF 5,000 UNIT/0.5 ML SYRINGE SQ SCH ×2 (07:49→20:51)
[2021-08-20] MEDS: PANTOPRAZOLE 40 MG/10 ML VIAL IV SCH (07:49)
[2021-08-20] MEDS: SODIUM CHLORIDE 0.9% 1,000 ML IV SCH ×2 (07:52→22:52)
[2021-08-20 12:08] LABS: Basophils # (A) 0.02 X 10*3/uL (0.00-0.10); Basophils % (A) 0.2 %; Eosinophils # (A) 0.24 X 10*3/uL (0.04-0.35); Eosinophils % (A) 2.8 %; HGB 11.3 g/dL (13.0-17.0); Immature Grans, Automated 0.4 %; Lymphocytes # (A) 1.15 X 10*3/uL (0.90-5.00); Lymphocytes % (A) 13.5 %; MCH 23.7 pg (27.0-32.0); MCHC 29.7 g/dL (32.0-37.0); MCV 79.8 fL (80.0-97.0); Mean Platelet Volume 10.6 fL (9.5-12.2); Monocytes # (A) 0.86 X 10*3/uL (0.20-1.00); Monocytes % (A) 10.1 %; NRBC Per 100 WBC 0 /100 WBCS (0.0-0.0); Neutrophils # (A) 6.21 X 10*3/uL (1.80-7.70); Platelet Count 235 X 10*3/uL (140-440); RBC 4.76 X 10*6/uL (4.40-5.60); RDW 14.2 % (11.5-14.5); WBC 8.51 X 10*3/uL (4.50-10.00)
[2021-08-20 13:28] LABS: African American GFR (CKD) 128.6 (60.0-200.0); Albumin 3.1 g/dL (3.8-4.9); Albumin/Globulin Ratio 1.29 (1.60-3.17); BUN/Creat Ratio 18.5 Ratio (12.00-20.00); Blood Urea Nitrogen 14.8 mg/dL (9.0-27.0); Globulin 2.4 g/dL (1.6-3.3); Potassium 3.3 mmol/L (3.5-5.5); Total Bilirubin 0.6 mg/dL (0.30-1.20); Total Protein 5.5 g/dL (6.2-8.2)
[2021-08-20] MEDS ORDERED: Potassium Replacement Protocol 1 EACH MISC MISCELLANE PRN (13:49)
[2021-08-20] MEDS: POTASSIUM CHLORIDE ER 20 MEQ TAB.ER PO SCH ×2 (13:54→15:28)
[2021-08-20] MEDS: HYDROmorphone 0.5 MG/0.5 ML SYRINGE IVP PRN ×4 (13:54→22:51)
--- NOTE | 2021-08-20 15:18 | P.PN ---
Subjective Progress Note Date: 08/20/21 CHIEF COMPLAINT: Abdominal pain HISTORY OF PRESENT ILLNESS: The patient is a 41-year-old male admitted for gallstone pancreatitis. Patient reports decreased abdominal pain. He reports history of fevers. Pain is 3 out of 10. He is tolerating diet. He reports appointment with surgeon at his local home town in 1 week. ROS: No reports of nausea and vomiting. No bowel movements. Tmax 100.3 overnight. No new chest pain. No productive sputum PHYSICAL EXAM: VITAL SIGNS: Reviewed CONSTITUTIONAL: Well developed and in no acute distress. EYES: Conjuctivae without sclera icterus. Extraocular movements grossly intact. HEAD, EARS, NOSE, THROAT: Moist buccal mucosa. Head is atraumatic, normocep halic. Hears conversational speech. No nasal drainage. RESPIRATORY: Non-labored respirations and equal bilateral excursions. CARDIOVASCULAR: Palpable 2+ radial pulses. ABDOMEN: MUSCULOSKELETAL: No gross deformity of the lower extremities noted. No clubbing. No cyanosis. SKIN: Good skin turgor. Well perfused. NEUROLOGIC: Cranial nerves II through XII grossly intact. No focal or lateralizing signs. PSYCH: Appropriate affect. Alert and oriented to person, place and time. CLINICAL LABS: Reviewed. WBC normal at 8.5 MICROBIOLOGY: Blood cultures still pending. ASSESSMENT: 1. Gallstone pancreatitis. 2. Fevers PLAN: 1. Discharge pending resolution of fevers. Objective - Vital Signs Vital signs: Vital Signs Temp 99.2 F 08/20/21 13:00 Pulse 91 08/20/21 13:00 Resp 16 08/20/21 13:00 BP 135/80 08/20/21 13:00 Pulse Ox 94 L 08/20/21 13:00 FiO2 Intake & Output 08/19/21 08/20/21 08/20/21 18:59 06:59 18:59 Intake Total 600 Balance 600 Weight 92.986 kg Intake: Oral 600 Other: Voiding Method Toilet Toilet - Labs CBC & Chem 7: 08/20/21 06:22 08/20/21 06:22 Labs: Abnormal Lab Results - Last 24 Hours (Table) 08/20/21 08/20/21 Range/Units 06:22 06:22 Hgb 11.3 L (13.0-17.0) g/dL Hct 38.0 L (39.6-50.0) % MCV 79.8 L (80.0-97.0) fL MCH 23.7 L (27.0-32.0) pg MCHC 29.7 L (32.0-37.0) g/dL Potassium 3.3 L (3.5-5.5) mmol/L Calcium 8.0 L (8.7-10.3) mg/dL ALT 99 H (10-49) U/L Total Protein 5.5 L (6.2-8.2) g/dL Albumin 3.1 L (3.8-4.9) g/dL Albumin/Globulin Ratio 1.29 L (1.60-3.17) g/dL Lipase 79 H (14-60) U/L Microbiology - Last 24 Hours (Table) 08/17/21 14:03 Blood Culture - Preliminary Blood No Growth after 48 hours
--- NOTE | 2021-08-20 17:54 | P.PN ---
Subjective This is a pleasant 41-year-old male with no significant past medical history presents to the with concern for abdominal pain and nausea vomiting. He is a former smoker quit in 2014, reports drinking 2-3 beers a few times per week, not daily. Patient is in the area vacationing with his . Around 4 pm yesterday he began having abdominal pain epigastric rates it as a sharp rating 8 to 9 out of 10. He also has nausea and vomiting that began sunday night. Denies hematemesis. No fever, no chills. No diarrhea, no melena. No recent diet garcia es, no recent illness. He has no history of pancreas or gallbladder issues. Nausea and vomiting has improved, abdominal pain is diffuse and has improved somewhat with pain medication. Once the medication wears off at around the 2.5 to 3 hour stephane, pain returns at a 9/10. On admission white count was 9.1, glucose final 118. Liver enzymes were found to be elevated total bili 3.0, AST 710, ALT 866, alk phos 132. Amylase is elevated at 1003, lipase elevated at 12,637. Abdominal pelvis CT completed shows some fluid around the pancreas consistent with possible pancreatitis. There is also calcified gallstones. Gallbladder duct does not appear dilated on imaging. Patient is admitted for possible gallstone pancreatitis, he has been nothing by mouth and is receiving fluids with normal saline. Amylase and lipase have improved, liver enzymes have also improved somewhat with hydration. He has been evaluated by surgical services who will plan for MRCP to rule out common bile duct stone. Enzymes will be trended. Pt is afebrile, heart rate 92, blood pressure 142/82, 100% room air. 08/17/2021 Patient evaluated today resting in bed. 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 MRCP shows evidence for choledocholelisthiasis, cholelisthiasis, pancreatitis, cholecystitis. There is also evidence of basilar atelectasis on MRCP. Patient was started on IV zosyn. Pain today has slightly improved, mostly epigastric left upper quadrant pain. There is tenderness to palpation. He denies nausea, no vomiting. Pain is about 7/10 before pain meds. White count continues to be negative at 7.3. Oxygen saturation is 90 to 93% on room air. He does have some faint basilar crackles on exam. Liver enzymes are improving, amylase is now 194, lipase 343. GI services plan for ERCP in 1-2 days. General surgery is on consult and following patient. 08/18/2021 Patient is resting in bed. Plan is for ERCP later this afternoon with Dr Denis Diaz. Patient continues to be febrile his T-max overnight 102.4, he is also tachycardic. Infectious disease has been consulted. He continues with mostly upper abdominal pain rating a 7/10 and reports bloating. Denies passing gas, has not had BM since prior to admission. We will add bowel regimen as he continues on narcotics for pain management. He does have some shortness of breath reported. Chest xray was completed which shows small to tiny left pleural effusion and bibasilar acute infiltrate/atelectasis. Blood cultures are pending, urinalysis showing proteinurea, glucose, ketones with small blood. No evidence for urinary tract infection. Labs reviewed; white count 9.60, hgb 11.9, MCV 77.9, sodium 136, potassium 3.9, BUN 13.7, creatinine 0.9, calcium 8.2. Total bili is now 1.20, AST 29, ALT 223, alk phos 104, total protein 5.6, albumin 3.4. His lipase is now 63. 08/19/2021 Patient today sitting up in bed states relieving offers abdominal pain after he had ERCP yesterday. Status post ERCP on 08/18 with biliary sphincterotomy and balloon stone extraction His abdominal pain this morning is 4-5/10 in severity, he has one bowel movement after been constipated for a while, it was green in color [place] solid and part of it is loose. He tolerates diet but needs to be monitored. He had fever yesterday of more than 100 Currently kept on IV Unasyn and normal saline at 60 mL/h Follow-up labs in the morning Patient where he will need cholecystectomy which can be done as an outpatient as per consult 08/20/2021 Patient abdominal pain improving and he agrees to lower his Dilaudid 1 mg down 0.5 mg today. Distal have spiking fever of 100.3. Patient wanted to go home today however me and Dr. lam from ID team talk to him to continue IV antibiotic and we will monitor his temperature tomorrow and he agrees to stay in the hospital now. Patient states he is tolerating diet well Monitor potassium and magnesium tomorrow. Risks of flaps looks stable. Lipase is 79. CBC is a stable. He is on Unasyn and normal saline at 60 mL per hour Possible discharge in 24-48 hours if he keeps improving and cleared by all consults Objective - Vital Signs Vital signs: Vital Signs Temp 99.2 F 08/20/21 13:00 Pulse 91 08/20/21 13:00 Resp 16 08/20/21 13:00 BP 135/80 08/20/21 13:00 Pulse Ox 94 L 08/20/21 13:00 FiO2 Intake & Output 08/19/21 08/20/21 08/20/21 18:59 06:59 18:59 Intake Total 600 Balance 600 Weight 92.986 kg Intake: Oral 600 Other: Voiding Method Toilet Toilet - Exam GENERAL: The patient is alert and oriented x3, not in any acute distress. Well developed, well nourished. HEENT: Pupils are round and equally reacting to light. EOMI. No scleral icterus. No conjunctival pallor. Normocephalic, atraumatic. No pharyngeal erythema. No thyromegaly. CARDIOVASCULAR: S1 and S2 present. No murmurs, rubs, or gallops. PULMONARY: Chest is clear to auscultation, no wheezing or crackles. -ABDOMEN: Soft, mild upper abdominal tenderness, nondistended, normoactive bowel sounds. No palpable organomegaly. MUSCULOSKELETAL: No joint swelling or deformity. EXTREMITIES: No cyanosis, clubbing, or pedal edema. NEUROLOGICAL: Gross neurological examination did not reveal any focal deficits. SKIN: No rashes. no petechiae. - Labs CBC & Chem 7: 08/20/21 06:22 08/20/21 06:22 Labs: Abnormal Lab Results - Last 24 Hours (Table) 08/20/21 08/20/21 Range/Units : 06:22 Hgb 11.3 L (13.0-17.0) g/dL Hct 38.0 L (39.6-50.0) % MCV 79.8 L (80.0-97.0) fL MCH 23.7 L (27.0-32.0) pg MCHC 29.7 L (32.0-37.0) g/dL Potassium 3.3 L (3.5-5.5) mmol/L Calcium 8.0 L (8.7-10.3) mg/dL ALT 99 H (10-49) U/L Total Protein 5.5 L (6.2-8.2) g/dL Albumin 3.1 L (3.8-4.9) g/dL Albumin/Globulin Ratio 1.29 L (1.60-3.17) g/dL Lipase 79 H (14-60) U/L Microbiology - Last 24 Hours (Table) 08/17/21 14:03 Blood Culture - Preliminary Blood No Growth after 72 hours Assessment and Plan Assessment: acute gallstone pancreatitis, improved Acute ascending cholangitis with sepsis with evidence of choledocholisthiasis, c holelisthiasis, status post ERCP and stone extraction on 08/19 sepsis secondary to above, improving Elevated LFT's, improving Hypertension most likely from pain Hyperglycemia, improved A1C 5.7 Former smoker Plan: This is a pleasant 41 years old male who presents with pancreatitis secondary to gallstone disease and choledocholithiasis status post ERCP and stone extraction. Continue with Unasyn Continue with gentle hydration Monitor labs Several consultants on the case including surgery and infectious disease team GI team signed off Labs and medication were reviewed.. Continue same treatment. Continue with symptomatic treatment. Resume home medication. Monitor lytes and vitals. DVT and GI prophylaxis. Further recommendations as per clinical course of the patient DVT prophylaxis: Subcutaneous heparin GI Prophylaxis: Pepcid PT/OT: Pending Prognosis is guarded
--- NOTE | 2021-08-21 01:42 | P.PN ---
Subjective Progress Note Date: 08/20/21 Principal diagnosis: Fever likely cholangitis Patient is a 41-year-old male presenting to the hospital with acute abdominal pain nausea and vomiting patient has been diagnosed with the gallstone pancreatitis and did have evidence of choledocholithiasis in this patient who is status post ERCP and removal of the CBD stone completed evening of 08/18/2021. On today's evaluation that is 08/20/2021, the patient did have a low-grade fever 100.3 last night, the patient is afebrile since then, the patient is breathing comfortably patient abdominal pain has decreased in intensity no nausea or vomiting no chest pain shortness of breath or cough Objective - Vital Signs Vital signs: Vital Signs Temp 98.6 F 08/20/21 08:24 Pulse 83 08/20/21 08:30 Resp 16 08/20/21 08:30 BP 128/81 08/20/21 08:24 Pulse Ox 95 08/20/21 04:40 FiO2 Intake & Output 08/19/21 08/20/21 08/20/21 18:59 06:59 18:59 Intake Total 600 Balance 600 Weight 92.986 kg Intake: Oral 600 Other: Voiding Method Toilet Toilet - Exam GENERAL DESCRIPTION: Middle-age male lying in bed in no distress RESPIRATORY SYSTEM: Unlabored breathing , decreased breath sounds at bases HEART: S1 S2 regular rate and rhythm , ABDOMEN: Soft , mild epigastric tenderness EXTREMITIES: No edema feet - Labs CBC & Chem 7: 08/20/21 06:22 08/20/21 06:22 Labs: Microbiology - Last 24 Hours (Table) 08/17/21 14:03 Blood Culture - Preliminary Blood No Growth after 48 hours Assessment and Plan (1) Choledocholithiasis Current Visit: Yes Status: Acute Code(s): K80.50 - CALCULUS OF BILE DUCT W/O CHOLANGITIS OR CHOLECYST W/O OBST SNOMED Code(s): 460770309 (2) Fever Current Visit: Yes Status: Acute Code(s): R50.9 - FEVER, UNSPECIFIED SNOMED Code(s): 676195874 Plan: 1patient presented to hospital with sepsis and respiratory have a fever tachycardia source is likely acute gallstone pancreatitis concerning for choledocholithiasis and cholecystitis likely from enteric gram-negative pathog en. 2patient is status post ERCP completed 08/18/2021 however the patient wants to cholecystectomy to be done locally close to his home town of [place]. 3patient to continue with Unasyn if the patient remains to be afebrile today we'll be able to transition to oral Augmentin tomorrow this was discussed with the patient and admitting physician Time with Patient: Less than 30
[2021-08-21] MEDS: HYDROmorphone 0.5 MG/0.5 ML SYRINGE IVP PRN ×3 (01:51→08:46)
[2021-08-21] MEDS: AMPICILLIN-SULBACTAM 3 GM in SODIUM CHLORIDE 0.9% 100 ML IVPB SCH ×2 (05:23→11:44)
[2021-08-21] MEDS: HEPARIN SODIUM,PORCINE/PF 5,000 UNIT/0.5 ML SYRINGE SQ SCH (07:04)
[2021-08-21] MEDS: PANTOPRAZOLE 40 MG/10 ML VIAL IV SCH (08:47)
[2021-08-21 09:25] LABS: Magnesium 1.9 mg/dL (1.5-2.4); Potassium 3.4 mmol/L (3.5-5.5)
[2021-08-21] MEDS ORDERED: POTASSIUM CHLORIDE ER 20 MEQ TAB.ER PO STA (11:28)
[2021-08-21] MEDS: HYDROcodone/APAP 7.5-325MG 1 EACH TAB PO PRN (11:52)
[2021-08-21 12:56] VITALS: BP 124/72; PULSE 85; TEMP 99.2
--- NOTE | 2021-08-21 13:35 | P.PN ---
Subjective Progress Note Date: 08/21/21 CHIEF COMPLAINT: Abdominal pain HISTORY OF PRESENT ILLNESS: The patient is a 41-year-old male admitted for gallstone pancreatitis. Fever curve improved less than 100.0. Pain moderately improved. Blood cultures negative to date. ROS: No reports of nausea and vomiting. No bowel movements. No new chest pain. No productive sputum PHYSICAL EXAM: VITAL SIGNS: Reviewed CONSTITUTIONAL: Well developed and in no acute distress. EYES: Conjuctivae without sclera icterus. Extraocular movements grossly intact. HEAD, EARS, NOSE, THROAT: Moist buccal mucosa. Head is atraumatic, normocephalic. Hears conversational speech. No nasal drainage. RESPIRATORY: Non-labored respirations and equal bilateral excursions. CARDIOVASCULAR: Palpable 2+ radial pulses. ABDOMEN: MUSCULOSKELETAL: No gross deformity of the lower extremities noted. No clubbing. No cyanosis. SKIN: Good skin turgor. Well perfused. NEUROLOGIC: Cranial nerves II through XII grossly intact. No focal or lateralizing signs. PSYCH: Appropriate affect. Alert and oriented to person, place and time. CLINICAL LABS: Reviewed. WBC normal at 8.5 ASSESSMENT: 1. Gallstone pancreatitis. PLAN: 1. Stable from a surgical standpoint for discharge. Objective - Vital Signs Vital signs: Vital Signs Temp 99.2 F 08/21/21 12:55 Pulse 85 08/21/21 12:55 Resp 16 08/21/21 12:55 BP 124/72 08/21/21 12:55 Pulse Ox 97 08/21/21 12:55 FiO2 Intake & Output 08/20/21 08/21/21 08/21/21 18:59 06:59 18:59 Intake Total 240 Balance 240 Intake: Oral 240 Other: Voiding Method Toilet Toilet Toilet - Labs CBC & Chem 7: 08/20/21 06:22 08/21/21 05:55 Labs: Abnormal Lab Results - Last 24 Hours (Table) 08/21/21 Range/Units 05:55 Potassium 3.4 L (3.5-5.5) mmol/L Microbiology - Last 24 Hours (Table) 08/17/21 14:03 Blood Culture - Preliminary Blood No Growth after 72 hours
[2021-08-22] MEDS ORDERED: PANTOPRAZOLE 40 MG TABLET PO SCH (07:30)
== END 2021-08-21 16:09 | disposition home or self-care (01) | DRG 871 ==
LOC: EC 17:50 → 5NMEDONC 08-16 01:08
PROVIDERS: ADMIT Hospitalist; ATTEND Hospitalist
PROC: 0FC98ZZ Extirpation of Matter from Common Bile Duct, Via Natural or Artificial Opening Endoscopic (ICD-10-PCS; principal; 2021-08-18 10:05)
DX: A41.9 Sepsis, unspecified organism (principal); K85.10 Biliary acute pancreatitis without necrosis or infection; J98.11 Atelectasis; K80.30 Calculus of bile duct with cholangitis, unspecified, without obstruction; K80.60 Calculus of gallbladder and bile duct with cholecystitis, unspecified, without obstruction; I10 Essential (primary) hypertension; Z80.1 Family history of malignant neoplasm of trachea, bronchus and lung; Z80.3 Family history of malignant neoplasm of breast; Z87.891 Personal history of nicotine dependence
CPT/HCPCS: 36415; 43262; 43264; 71046; 74177; 74181; 74330; 80053; 81001; 82150; 83036; 83605; 83690; 83735; 84132; 85025; 85027; 85610; 85730; 87040; 96361; 96374; 96375; 96376; 99285